=== PATIENT | female | born 1970 | race Hispanic/Latino ===

== ENCOUNTER → 2021-01-25 11:20 | Outpatient (CLI) | payer MEDICAID, SELFPAY ==
[2021-01-25 10:57] VITALS: BMI 28.3
[2021-01-25 15:18] LABS: Thyroid Stim Hormone (TSH) 0.55 uIU/mL (0.358-3.74)
[2021-01-27 09:01] LABS: Thyroid Peroxidase AB < 9 IU/mL (0-34)
== END ==
PROVIDERS: PCP Internal Medicine; Referring Provider Internal Medicine Endocrinology, Diabetes & Metabolism; Visit Provider Internal Medicine Endocrinology, Diabetes & Metabolism
DX: E04.9 Nontoxic goiter, unspecified (principal)
CPT/HCPCS: 36415; 84443; 86376

== ENCOUNTER → 2022-02-21 | Outpatient (CLI) | payer MEDICAID, SELFPAY ==
[2022-02-25 16:08] LABS: Endomysial Antibody IgA Negative (Negative)
[2022-02-25 17:15] LABS: Immunoglobulin A 432 mg/dL (87-352); t-Transglutaminase IgA <2 U/mL (0-3)
== END | disposition home or self-care (01) ==
LOC: LAB 14:12
PROVIDERS: PCP Internal Medicine; Referring Provider Nurse Practitioner Adult Health; Visit Provider Nurse Practitioner Adult Health
DX: R10.9 Unspecified abdominal pain (principal)
CPT/HCPCS: 36415; 82784; 83516; 86255

== ENCOUNTER → 2022-02-26 | Outpatient (CLI) | payer MEDICAID, SELFPAY ==
[2022-02-28 10:46] LABS: H. PYLORI STOOL AG Negative (Negative)
== END | disposition home or self-care (01) ==
LOC: LABSPEC 12:58
PROVIDERS: PCP Internal Medicine; Referring Provider Nurse Practitioner Adult Health; Visit Provider Nurse Practitioner Adult Health
DX: R10.9 Unspecified abdominal pain (principal)

== ENCOUNTER 2022-05-23 10:07 | Day surgery (SDC) | payer MEDICAID, SELFPAY ==
[2022-05-23] VITALS (7 sets, daily range): BP systolic 88–116; BP diastolic 53–81; PULSE 78–110; RESP 16–18; TEMP 36.6–36.7; O2SAT 98–100; BMI 25.1
--- NOTE | 2022-05-23 10:59 | PCM.HP.BLA ---
History and Physical Date of Admission: 05/23/22 WILBER LOVETT, is a 51 F who presents to the office today for 6 wk f/u IBS-C. Monik wasn't covered, so we need to try a different Rx. IBS-C -- She has tried and failed fiber, stool softener, dulcolax, fleets enema, suppository, miralax. Usually 1-2 BMs per day, but feels constipated and bloated. Sometimes has to strain. Never feels fully evacuated. No diarrhea. No melena or hematochezia. She had screening colonoscopy 04/2020, negative. GERD -- she started pantoprazole 40 mg daily in December 2021, helped heartburn but her epigastric pain persisted. Remote hx of EGD, told she has a hiatal hernia. Chokes if she doesn't drink enough when eating. No postprandial pain. Bad pain in stomach and diarrhea if she eats banana, less severe symptoms with avocado. Tries to be gluten free, that has helped her abdominal pain pain. Diverticulitis -- in 11/2021. LLQ pain when she had diverticulitis 11/2021, had CT, was treated at [facility], that pain resolved. HIDA scan in 04/2020 was abnormal w/ EF 28, no eval for cholecystectomy, pain resolved. PMH includes inflammatory arthritis, asthma, fibromyalgia, headache disorder, dyslipidemia, allergies PSH includes x 2, hysterectomy, oophorectomy, laparoscopy. ROS Const Constitutional: Positive for headache(s); No fatigue ENT ENT: Positive for headache(s) and difficulty swallowing Cardio Cardiology: Positive for leg pain with exertion Gastro GI: Positive for abdominal pain, bloating, change in bowel habits, constipation, difficulty swallowing and excessive flatus; No belching, change in stool character, coffee ground emesis, cramping, diarrhea, heartburn, feeling full early, incontinent of stools, Vomiting blood/hematemesis, Blood in stool, loose stools, Black,tarry stools, nausea/dyspepsia, pain with swallowing, vomiting or other Musc Musculoskeletal: Positive for joint pain, back pain, joint swelling, numbness, tingling, Arthritis, restless legs, leg pain at night and leg pain with exertion Skin Skin: No yellowing of the eye or itchy eyes Neuro Neurology: Positive for headache(s), numbness, tingling and restless legs Psych Psychiatric: Positive for anxiety and No depression Endo Endocrine: No fatigue Aller/Imm Allergy/Immunologic: No itchy eyes Bienvenido/Lymp Hematologic/Lymphatic: Positive for easy bruising; No easy bleeding Exam Const General: cooperative, healthy appearing, comfortable, well developed and well groomed Quality Reporting Tobacco Screening ([facility]) Smoking Status: Never smoker Assessment and Plan Assessment and Plan (1) Irritable bowel syndrome with constipation: ?Status:?Acute ?Plan: 1 box of samples and prescription for Trulance 3 mg daily.? She is to call or send me a portal message letting me know if this is effective. (2) GERD (gastroesophageal reflux disease): ?Status:?Acute ?Plan: Continue pantoprazole.? She is scheduled for EGD and colonoscopy with follow-up after those. ? ? ? Medications: New plecanatide (Trulance) 3 mg? PO DAILY 90 tabs 3RF ? ? Discontinued linaclotide ?? Discontinued Reason:? None 290 mcg? PO QAM 30 caps 2RF ? ? Plan One box of samples of Trulance and rx for Trulance 3 mg daily for IBS with constipation.? She is to let me know how this works for her I have re-examined the patient. There are no clinical changes since date of exam.
--- NOTE | 2022-05-23 11:00 | EGD_PTH ---
PATIENT: GONZALO MESA LOC: EN U#:[id number] AGE/SX: 51/F ROOM: RE05/23/[address]: Dr. Kolby Wilson DO : 1970 BED: DIS: 05/23/2022 SPEC #: [id number] RECD: 05/23/22 12:37 STATUS: STORM REQ #: [id number] ANDREA: 05/23/22 11:[address]: Kolby Wilson DEPT: SURGICAL PATHOLOGY RECD BY: Johnna Chamorro ENTERED: 05/23/22 13:41 SP TYPE: EGD BIOPSY OT DR: Dr. Latesha Coffey MD Tissues: A - Esophagus, NOS B - Ileum, NOS C - Sigmoid colon biopsy Procedures: Special Stain Group II Surgery Specimen Level IV Alcian Blue/PAS (control) HEADER OPERATION: Colonoscopy, EGD ([facility] [place]) with biopsies PRE-OP DIAGNOSIS: Irritable bowel syndrome, constipation, GERD TISSUE SUBMITTED: A ? Random esophagus biopsy, B ? Terminal ileum biopsy, C ? Sigmoid biopsy MICROSCOPIC DIAGNOSIS A. Esophagus, random biopsy: Fragments of gastroesophageal mucosa with chronic inflammation. Intestinal metaplasia (goblet cell metaplasia) not identified. See comment. B. Terminal ileum, biopsy: Fragments of small intestinal mucosa, no pathologic diagnosis. C. Sigmoid colon, biopsy: Fragments of colonic mucosa, no pathologic diagnosis. SJ:jolene 05/24/2022 COMMENT A. Alcian blue/PAS stain with matched control is used in the evaluation of the specimen. MICROSCOPIC DESCRIPTION Slides are reviewed. GROSS DESCRIPTION A - Received in fixative is one container labeled with the patient's name and designated random esophagus biopsy. The specimen consists of multiple irregular fragments of light randolph soft tissue that in aggregate measure 0.8 x 0.3 x 0.1 cm. The specimen is totally submitted in one cassette. B - Received in fixative is one container labeled with the patient's name and designated terminal ileum biopsy. The specimen consists of two irregular fragments of light randolph soft tissue that in aggregate measure 0.8 x 0.2 x 0.1 cm. The specimen is totally submitted in one cassette. C - Received in fixative is one container labeled with the patient's name and designated sigmoid biopsy. The specimen consists of two irregular fragments of light randolph soft tissue that in aggregate measure 0.6 x 0.2 x 0.1 cm. The specimen is totally submitted in one cassette. / SJ:rg 05/23/2022 TC:3 CPT: 47471 x3, 51040
--- NOTE | 2022-05-23 11:32 | OP.EGD_ITS ---
Patient Name: Eloisa Ham Procedure Date: 05/23/2022 10:57 AM Date of : 1970 Age: 51 Procedure: Upper GI endoscopy Indications: Dysphagia, Heartburn Providers: Kolby Wilson DO Medicines: Monitored Anesthesia Care Patient Profile: This is a 51 year old female. Refer to note in patient chart for documentation of history and physical. Patient has symptoms of acute epigastric abdominal pain and chronic dyspepsia. Complications: No immediate complications. Procedure: Pre-Anesthesia Assessment: - Prior to the procedure, a History and Physical was performed, and patient medications and allergies were reviewed. The risks and benefits of the procedure and the sedation options and risks were discussed with the patient. All questions were answered and informed consent was obtained. Patient identification and proposed procedure were verified by the physician in the pre-procedure area. Mental Status Examination: alert and oriented. Airway Examination: normal oropharyngeal airway and neck mobility. Respiratory Examination: clear to auscultation. CV Examination: normal. Prophylactic Antibiotics: The patient does not require prophylactic antibiotics. Prior Anticoagulants: The patient has taken no previous anticoagulant or antiplatelet agents. After reviewing the risks and benefits, the patient was deemed in satisfactory condition to undergo the procedure. The anesthesia plan was to use moderate sedation / analgesia (conscious sedation). Immediately prior to administration of medications, the patient was re-assessed for adequacy to receive sedatives. The heart rate, respiratory rate, oxygen saturations, blood pressure, adequacy of pulmonary ventilation, and response to care were monitored throughout the procedure. The physical status of the patient was re-assessed after the procedure. After obtaining informed consent, the endoscope was passed under direct vision. Throughout the procedure, the patient's blood pressure, pulse, and oxygen saturations were monitored continuously. The pediatric colonoscope was introduced through the mouth, and advanced to the second part of duodenum. The upper GI endoscopy was accomplished without difficulty. The patient tolerated the procedure well. Scope In: 11:06:42 AM Scope Out: 11:11:12 AM Total Procedure Duration Time 0 hours 4 minutes 30 seconds Findings: Mucosal changes including ringed esophagus were found in the middle third of the esophagus and in the lower third of the esophagus. Esophageal findings were graded using the Eosinophilic Esophagitis Endoscopic Reference Score (EoE-EREFS) as: Stricture present. Biopsies were obtained from the proximal and distal esophagus with cold forceps for histology of suspected eosinophilic esophagitis. Verification of patient identification for the specimen was done. Estimated blood loss was minimal. One benign-appearing, intrinsic stenosis was found 36 to 38 cm from the incisors. This stenosis was moderately severe and. The stenosis was traversed. A guidewire was placed and the scope was withdrawn. Dilation was performed with a Savary dilator with no resistance at 48 Fr. The dilation site was examined following endoscope reinsertion and showed moderate improvement in luminal narrowing. Estimated blood loss was minimal. The entire examined stomach was normal. A small hiatal hernia was present. The second portion of the duodenum was normal. Impression: - Esophageal mucosal changes consistent with eosinophilic esophagitis. Biopsied. - Benign-appearing esophageal stenosis. Dilated. - Normal stomach. - Small hiatal hernia. - Normal second portion of the duodenum. Recommendation: - Discharge patient to home. - Resume previous diet. - Continue present medications. - Await pathology results. - Repeat upper endoscopy in 1 year for surveillance. Procedure Code(s): --- Professional --- 97934, Esophagogastroduodenoscopy, flexible, transoral; with insertion of guide wire followed by passage of dilator(s) through esophagus over guide wire 31008, 59,51, Esophagogastroduodenoscopy, flexible, transoral; with biopsy, single or multiple CPT copyright 2017 [employer]. All rights reserved. The codes documented in this report are preliminary and upon professional fee coder review may be revised to meet current compliance requirements. Kolby Wilson DO 05/23/2022 11:32:10 AM This report has been signed electronically. Number of Addenda: 1 Note Initiated On: 05/23/2022 10:57 AM Addendum Number: 1 Addendum Date: 07/25/2022 6:27:30 AM MAC was used as sedation for this procedure. Kolby Wilson DO 07/25/2022 6:27:34 AM This report has been signed electronically.
--- NOTE | 2022-05-23 11:33 | OP.CCLET_ITS ---
07/25/2022 Latesha Coffey Re : Upper GI endoscopy procedure for Eloisa Ham Dear Alexx This procedure was performed on May. My impressions and recommendations are as follows: Impressions : - Esophageal mucosal changes consistent with eosinophilic esophagitis. Biopsied. - Benign-appearing esophageal stenosis. Dilated. - Normal stomach. - Small hiatal hernia. - Normal second portion of the duodenum. Recommendations : - Discharge patient to home. - Resume previous diet. - Continue present medications. - Await pathology results. - Repeat upper endoscopy in 1 year for surveillance. My findings are described in the full procedure note, which is enclosed. If I can be of further assistance, please feel free to contact me at . Sincerely, Kolby Friend, 05/23/2022 11:32:10 AM This report has been signed electronically.
--- NOTE | 2022-05-23 11:37 | OP.COLON_ITS ---
Patient Name: Eloisa Ham Procedure Date: 05/23/2022 11:11 AM Date of : 1970 Age: 51 Procedure: Colonoscopy Indications: Generalized abdominal pain Providers: Kolby Wilson DO Medicines: Monitored Anesthesia Care Patient Profile: This is a 51 year old female. Refer to note in patient chart for documentation of history and physical. Patient has symptoms of acute epigastric abdominal pain and chronic dyspepsia. Last Colonoscopy: 5 years ago. Complications: No immediate complications. Procedure: Pre-Anesthesia Assessment: - Prior to the procedure, a History and Physical was performed, and patient medications and allergies were reviewed. The risks and benefits of the procedure and the sedation options and risks were discussed with the patient. All questions were answered and informed consent was obtained. Patient identification and proposed procedure were verified by the physician in the pre-procedure area. Mental Status Examination: alert and oriented. Airway Examination: normal oropharyngeal airway and neck mobility. Respiratory Examination: clear to auscultation. CV Examination: normal. Prophylactic Antibiotics: The patient does not require prophylactic antibiotics. Prior Anticoagulants: The patient has taken no previous anticoagulant or antiplatelet agents. After reviewing the risks and benefits, the patient was deemed in satisfactory condition to undergo the procedure. The anesthesia plan was to use moderate sedation / analgesia (conscious sedation). Immediately prior to administration of medications, the patient was re-assessed for adequacy to receive sedatives. The heart rate, respiratory rate, oxygen saturations, blood pressure, adequacy of pulmonary ventilation, and response to care were monitored throughout the procedure. The physical status of the patient was re-assessed after the procedure. After I obtained informed consent, the scope was passed under direct vision. Throughout the procedure, the patient's blood pressure, pulse, and oxygen saturations were monitored continuously. The pediatric colonoscope was introduced through the anus and advanced to the terminal ileum. The colonoscopy was performed without difficulty. The patient tolerated the procedure well. The quality of the bowel preparation was good. Scope In: 11:13:09 AM Scope Withdrawal Time 0 hours 5 minutes 44 seconds Scope Out: 11:26:27 AM Total Procedure Duration Time 0 hours 13 minutes 18 seconds Findings: The perianal and digital rectal examinations were normal. Multiple small and large-mouthed diverticula were found in the recto-sigmoid colon, sigmoid colon and descending colon. There was no evidence of diverticular bleeding. An area of mildly congested mucosa was found in the sigmoid colon. Biopsies were taken with a cold forceps for histology. Verification of patient identification for the specimen was done. Estimated blood loss was minimal. A patchy area of the terminal ileum was congested. Biopsies were taken with a cold forceps for histology. Verification of patient identification for the specimen was done. Estimated blood loss was minimal. The sigmoid colon was grossly tortuous. There was moderate spasm in the recto-sigmoid colon. Impression: - Moderate diverticulosis in the recto-sigmoid colon, in the sigmoid colon and in the descending colon. There was no evidence of diverticular bleeding. - Congested mucosa in the sigmoid colon. Biopsied. - Congested mucosa in the terminal ileum. Biopsied. - Tortuous colon. - Moderate colonic spasm. Recommendation: - Written discharge instructions were provided to the patient. - The signs and symptoms of potential delayed complications were discussed with the patient. - Patient has a contact number available for emergencies. - Return to normal activities tomorrow. - Resume previous diet. - Continue present medications. - Await pathology results. - Repeat colonoscopy in 5 years for surveillance. Procedure Code(s): --- Professional --- 84556, Colonoscopy, flexible; with biopsy, single or multiple CPT copyright 2017 [employer]. All rights reserved. The codes documented in this report are preliminary and upon news production supervisor review may be revised to meet current compliance requirements. Kolby Wilson DO 05/23/2022 11:36:19 AM This report has been signed electronically. Number of Addenda: 1 Note Initiated On: 05/23/2022 11:11 AM Addendum Number: 1 Addendum Date: 07/25/2022 6:27:42 AM MAC was used as sedation for this procedure. Kolby Wilson DO 07/25/2022 6:27:46 AM This report has been signed electronically.
--- NOTE | 2022-05-23 11:37 | OP.CCLET_ITS ---
07/25/2022 Latesha Coffey Re : Colonoscopy procedure for Eloisa Ham Dear Alexx This procedure was performed on May. My impressions and recommendations are as follows: Impressions : - Moderate diverticulosis in the recto-sigmoid colon, in the sigmoid colon and in the descending colon. There was no evidence of diverticular bleeding. - Congested mucosa in the sigmoid colon. Biopsied. - Congested mucosa in the terminal ileum. Biopsied. - Tortuous colon. - Moderate colonic spasm. Recommendations : - Written discharge instructions were provided to the patient. - The signs and symptoms of potential delayed complications were discussed with the patient. - Patient has a contact number available for emergencies. - Return to normal activities tomorrow. - Resume previous diet. - Continue present medications. - Await pathology results. - Repeat colonoscopy in 5 years for surveillance. My findings are described in the full procedure note, which is enclosed. If I can be of further assistance, please feel free to contact me at . Sincerely, Kolby Wilson, 05/23/2022 11:36:19 AM This report has been signed electronically.
== END 2022-05-23 12:18 | disposition home or self-care (01) ==
LOC: EN 10:08 → AC 10:23
PROVIDERS: PCP Internal Medicine; Referring Provider Internal Medicine; Visit Provider Internal Medicine Gastroenterology
PROC: 0DJD8ZZ Inspection of Lower Intestinal Tract, Via Natural or Artificial Opening Endoscopic (ICD-10-PCS; CPT 45378; principal; 2022-05-23 10:55)
DX: K57.30 Diverticulosis of large intestine without perforation or abscess without bleeding (principal); R10.84 Generalized abdominal pain; K44.9 Diaphragmatic hernia without obstruction or gangrene; R13.10 Dysphagia, unspecified; K58.9 Irritable bowel syndrome, unspecified; R12 Heartburn; K63.89 Other specified diseases of intestine; K22.2 Esophageal obstruction
CPT/HCPCS: 43248; 45380; 43239; 88305; 88313; J7120; J2405

== ENCOUNTER → 2022-06-06 | Outpatient (CLI) | payer MEDICAID, SELFPAY ==
[2022-06-09 15:27] LABS: Immunoglobulin A 414 mg/dL (87-352)
== END | disposition home or self-care (01) ==
LOC: LAB 15:14
PROVIDERS: PCP Internal Medicine; Visit Provider Internal Medicine Gastroenterology
DX: K21.9 Gastro-esophageal reflux disease without esophagitis (principal)
CPT/HCPCS: 36415; 82784

== ENCOUNTER → 2022-09-02 | Outpatient (CLI) | payer MEDICAID, SELFPAY ==
--- NOTE | 2022-09-02 10:25 | RAD_ITS ---
EXAM: XR ABDOMEN, 1 VIEW CLINICAL INDICATION: sitz marker day 3 TECHNIQUE: Frontal supine view of the abdomen/pelvis. This report was created using [employer] report generation technology. COMPARISON: None. FINDINGS: LOWER THORAX: No acute pathology. GASTROINTESTINAL TRACT: 5 sitz markers are noted within the ascending colon, and 2 sitz markers are noted in the descending colon. Moderate amount of stool in the colon. Non-obstructive. No bowel or stomach distention. ORGANS: Unremarkable as visualized. No organomegaly. No abnormal calcifications. BONES/JOINTS: No acute pathology. SOFT TISSUES: No acute pathology. RAD/Abdomen Single View IMPRESSION: 5 sitz markers are noted within the ascending colon, and 2 sitz markers are noted in the descending colon. Electronically Signed: Arvind De La Paz MD at 2:36 EST ,
== END | disposition home or self-care (01) ==
LOC: RAD 10:23
PROVIDERS: PCP Internal Medicine; Referring Provider Nurse Practitioner Adult Health; Visit Provider Nurse Practitioner Adult Health
DX: K58.1 Irritable bowel syndrome with constipation (principal)
CPT/HCPCS: 74018

== ENCOUNTER → 2022-09-04 | Outpatient (CLI) | payer MEDICAID, SELFPAY ==
--- NOTE | 2022-09-04 10:13 | RAD_ITS ---
STUDY: X-RAY - ABDOMEN/PELVIS REASON FOR EXAM: Female, 51 years old. Sitz marker day 5. TECHNIQUE: Single AP view of the abdomen / pelvis on 2 images. COMPARISON: September 02, 2022. FINDINGS: Normal visualized lung bases. 2 Sitzmarks markers in the descending colon are no longer present. 4 Sitz markers projected between the cecum and the hepatic flexure. One sitz marker projected over the proximal transverse colon. All of these are unchanged from the comparison study. The visualized liver, spleen and kidneys are grossly normal in size and morphology. Normal soft tissue structures. Normal visualized osseous structures. RAD/Abdomen Single View IMPRESSION: Position of Sitz markers as described. Electronically Signed: John Edward, at 12:22 [facility] ,
== END | disposition home or self-care (01) ==
LOC: RAD 10:12
PROVIDERS: PCP Internal Medicine; Referring Provider Nurse Practitioner Adult Health; Visit Provider Nurse Practitioner Adult Health
DX: K58.1 Irritable bowel syndrome with constipation (principal)
CPT/HCPCS: 74018

== ENCOUNTER → 2024-02-11 | Outpatient (CLI) | payer MEDICAID, SELFPAY ==
--- NOTE | 2024-02-11 | CYSPIN_PTH ---
PATIENT: GONZALO MESA LOC: DE U#:[id number] AGE/SX: 53/F ROOM: RE02/11/[address]: Dr. Dasha Oliver MD : 1970 BED: DIS: 02/11/2024 SPEC #: [id number] RECD: 02/12/24 11:30 STATUS: STORM RESincere #: [id number] ANDREA: 02/11/24 00:[address]: Dasha Oliver DEPT: CYTOLOGY RECD BY: Johnna Chamorro ENTERED: 02/12/24 11:30 SP TYPE: CYSPIN FL OTHR DR: Dr. Latesha Coffey MD Tissues: Urine Procedures: Pap Stain (control) Special Stain Group II Cytospin Fluid HEADER OPERATION: Not noted PRE-OP DIAGNOSIS: Gross hematuria TISSUE SUBMITTED: Urine for cytology DIAGNOSIS CYTOLOGY Urine for cytology (cytospin): Negative for high grade urothelial carcinoma (NHGUC). Arelis System Category II. See comment. SJ/ 02/12/2024 COMMENT Numerous crystals are also noted. Red blood cells are also present in this specimen. The Arelis System for urine cytology diagnostic categorization was used in the evaluation of this case. CYTOLOGY STUDY Slides are reviewed. CYTOLOGY GROSS Received is 40 ml of dark gold fluid labeled with the patient's name and and designated per the requisition as urine. Submitted for cytology preparation. mr 02/12/24 TC:5 CPT: 62794
[2024-02-11 17:42] LABS: Cytology, Body Fluid / CSF SEE PATHOLOGY REPORT
== END | disposition home or self-care (01) ==
LOC: CT 17:41
PROVIDERS: PCP Internal Medicine; Referring Provider Urology; Visit Provider Urology
DX: R31.0 Gross hematuria (principal); R10.9 Unspecified abdominal pain
CPT/HCPCS: 88108; 88313

== ENCOUNTER → 2024-02-26 | Outpatient (CLI) | payer MEDICAID, SELFPAY ==
--- NOTE | 2024-02-26 07:53 | CT_ITS ---
STUDY: CT ABDOMEN AND PELVIS WITH AND WITHOUT CONTRAST REASON FOR EXAM: Female, 53 years old. Gross hematuria. Intermittent flank pain. RADIATION DOSAGE (If Supplied By Facility): CTDIvol = ( 7.05 ) mGy, DLP = ( 1015.43 ) mGycm TECHNIQUE: Transaxial images were obtained from the dome of the diaphragm to the symphysis pubis without oral contrast. IV 100mL Isovue-370 was administered. Sagittal and coronal images were reconstructed. Individualized dose optimization techniques were used for this CT. COMPARISON: None. FINDINGS: The visualized lung bases are unremarkable. The visualized portions of the heart are within normal limits. Normal liver. Normal gallbladder and extrahepatic biliary system. Normal spleen. Normal pancreas. Normal bilateral adrenal glands. Normal right kidney. Normal left kidney. Normal visualized stomach. Normal small intestine. There are multiple colonic diverticula consistent with diverticulosis. The appendix is visualized and appears normal. Normal abdominal aorta. Normal inferior vena cava. Normal retroperitoneum. Normal urinary bladder. There is absence of the uterus consistent with a prior hysterectomy. Normal abdominal wall. Normal osseous structures. CT/CT Abd/Pelvis W/WO Contrast IMPRESSION: Sigmoid diverticulosis. No acute abnormality is seen. Electronically Signed: Shaq Bynum MD at 14:48 EDT ,
== END | disposition home or self-care (01) ==
LOC: CT 07:50
PROVIDERS: PCP Internal Medicine; Referring Provider Urology; Visit Provider Urology
DX: R10.9 Unspecified abdominal pain (principal); R31.0 Gross hematuria
CPT/HCPCS: 74178; Q9967

== ENCOUNTER 2024-03-09 13:04 | Day surgery (SDC) | payer MEDICAID, SELFPAY ==
[2024-03-09 13:24] VITALS: BP 132/76; PULSE 94; RESP 18; TEMP 37.1; O2SAT 99; BMI 26.2
[2024-03-09] MEDS: Lactated Ringers 1,000 ML 15 ML IV (13:33)
--- NOTE | 2024-03-09 14:04 | PCM.HP.BLA ---
History and Physical Date of Admission: 03/09/24 GONZALO LOVETT, is a 53 F who presents to the office today for PMH rheumatoid arthritis (Humira); diverticulitis at [facility] Prior workup OSH: ? HIDA 05.10.20 EF 28% ? Colonoscopy 05.12.20 advanced to IC junction. *BGI established 02.21.22 with generalized abdominal pain. Epigastric pain is improved with use of protonix 40mg started in . BM trend toward constipation of 1-2/day with straining and incomplete evacuation; stool softener/fiber gummy ineffective. Start Linzess (denied by insurance) ? Biochemical 02.21.22 celiac (IgA H432) WNL ? Stool 02.26.22 H.Pylori WNL OV 04.05.22 start trulance ? EGD and colonoscopy 05.23.22 EGD mucosal changes of EOE; esophageal stenosis, Savary 48F; small hiatal hernia. No metaplasia. ? Colonoscopy diverticulosis; congested mucosa; RS colonic spasm; sigmoid grossly tortuous. No path changes OV 06.06.22 She has been out of PPI for three days with return of heartburn. BM each day without straining and complete evacuation with Trulance. ? Biochemical 06.06.22 IgA H 414 OV 08.29.22 Repeat episode of diverticulitis. Stop trulance, start IBSrela. ? SITZ Xray day 3: 5 rings R colon, 3 rings L colon, 1 ring RS colon. Day 5: 6 rings R colon; No rings L or RS colon. OV 11.18.22 Stop IBSrela, Start lactulose 11.18.22 OV 12 Reports several episodes of diverticulitis treated at [facility] with antibiotics. Taking lactulose daily and is having ongoing constipation with hard smaller BM or normal movements of smaller quantity. ROS Const Constitutional: Positive for headache(s) and weight change; No fatigue ENT ENT: Positive for headache(s); No difficulty swallowing Cardio Cardiology: Positive for leg pain with exertion Gastro GI: Positive for abdominal pain, bloating, constipation and excessive flatus; No belching, change in bowel habits, change in stool character, coffee ground emesis, cramping, diarrhea, heartburn, difficulty swallowing, feeling full early, incontinent of stools, Vomiting blood/hematemesis, Blood in stool, loose stools, Black,tarry stools, nausea/dyspepsia, pain with swallowing, vomiting or other Musc Musculoskeletal: Positive for joint pain, back pain, joint swelling, Arthritis, restless legs and leg pain with exertion Skin Skin: No yellowing of the eye or itchy eyes Neuro Neurology: Positive for headache(s) and restless legs Psych Psychiatric: No anxiety and No depression Endo Endocrine: Positive for weight change; No fatigue Aller/Imm Allergy/Immunologic: No itchy eyes Bienvenido/Lymp Hematologic/Lymphatic: No easy bleeding or easy bruising Exam Const General: cooperative, healthy appearing and comfortable Orientation: alert, awake and oriented x3 Quality Reporting Tobacco Screening ([facility] 138) Smoking Status: Never smoker Assessment and Plan Assessment and Plan (1) Irritable bowel syndrome with constipation: Status: Chronic Plan: She was tried on Linzess but her insurance did not allow her to continue that medicine although she did have some success at the 290 mcg dose. She was then put on Trulance therapy would actually work pretty well with at the 3 mg dose once a day. She developed acute diverticulitis while on the medicine and after that she was switched to lactulose 15 mg p.o. twice daily. That became a little bit less effective as she has been getting some intermittent crampy left lower quadrant pain. She called in and she was given permission to increase it up to 30 mg twice a day and it works on occasion but not every occasion. She is on some medicines that slow her GI tract down due to her history of migraines and fibromyalgia. Therefore I will put her back on the Trulance and we will introduce [facility]. Also since she has been having some intermittent left lower quadrant pain associate with fever, incomplete evacuation and tenesmus we may need to treat her for recurrent diverticulitis. (2) GERD (gastroesophageal reflux disease): Status: Chronic Qualifiers: Esophagitis presence: without esophagitis Qualified Code(s): K21.9 - Gastro-esophageal reflux disease without esophagitis Plan: Continue PPI as needed. (3) Hx of diverticulitis of colon: Status: Chronic I have examined the patient and the H&P has been reviewed. There are no clinical changes since date of exam.
[2024-03-09 14:36] VITALS: BP 132/76; BP 83/50; PULSE 87; RESP 16; TEMP 36.3; O2SAT 100
[2024-03-09 14:40] VITALS: BP 132/76; BP 94/69; PULSE 91; RESP 16; O2SAT 100
--- NOTE | 2024-03-09 14:41 | OP.COLON_ITS ---
Patient Name: Eloisa Ham Procedure Date: 03/09/2024 2:02 PM Date of : 1970 Age: 53 Procedure: Colonoscopy Indications: Screening for colorectal malignant neoplasm Providers: Kolby Wilson DO Referring MD: Latesha Coffey Medicines: Monitored Anesthesia Care Patient Profile: This is a 53 year old female. Refer to note in patient chart for documentation of history and physical. Last Colonoscopy: date unknown. Unable to locate last colonoscopy report. Complications: No immediate complications. Procedure: Pre-Anesthesia Assessment: - Prior to the procedure, a History and Physical was performed, and patient medications and allergies were reviewed. The patient is competent. The risks and benefits of the procedure and the sedation options and risks were discussed with the patient. All questions were answered and informed consent was obtained. Patient identification and proposed procedure were verified by the physician in the pre-procedure area. Mental Status Examination: alert and oriented. Airway Examination: normal oropharyngeal airway and neck mobility. Respiratory Examination: clear to auscultation. CV Examination: normal. Prophylactic Antibiotics: The patient does not require prophylactic antibiotics. Prior Anticoagulants: The patient has taken no anticoagulant or antiplatelet agents. ASA Grade Assessment: II - A patient with mild systemic disease. After reviewing the risks and benefits, the patient was deemed in satisfactory condition to undergo the procedure. The anesthesia plan was to use monitored anesthesia care (MAC). Immediately prior to administration of medications, the patient was re-assessed for adequacy to receive sedatives. The heart rate, respiratory rate, oxygen saturations, blood pressure, adequacy of pulmonary ventilation, and response to care were monitored throughout the procedure. The physical status of the patient was re-assessed after the procedure. After I obtained informed consent, the scope was passed under direct vision. Throughout the procedure, the patient's blood pressure, pulse, and oxygen saturations were monitored continuously. The Colonoscope was introduced through the anus and advanced to the cecum, identified by appendiceal orifice and ileocecal valve. The colonoscopy was performed without difficulty. The patient tolerated the procedure well. The quality of the bowel preparation was adequate. The terminal ileum, ileocecal valve, appendiceal orifice, and rectum were photographed. Scope In: 2:20:30 PM Scope Withdrawal Time 0 hours 7 minutes 36 seconds Scope Out: 2:31:48 PM Total Procedure Duration Time 0 hours 11 minutes 18 seconds Findings: The perianal and digital rectal examinations were normal. Multiple small and large-mouthed diverticula were found in the recto-sigmoid colon, sigmoid colon and descending colon. There was significant spasm in the sigmoid colon. The terminal ileum appeared normal. Impression: - Diverticulosis in the recto-sigmoid colon, in the sigmoid colon and in the descending colon. - Significant colonic spasm consistent with irritable bowel syndrome. - The examined portion of the ileum was normal. - No specimens collected. Recommendation: - Discharge patient to home. - Resume previous diet. - Continue present medications. - Repeat colonoscopy in 10 years for surveillance. Procedure Code(s): --- Professional --- G0121, Colorectal cancer screening; colonoscopy on individual not meeting criteria for high risk CPT copyright 2021 [employer]. All rights reserved. The codes documented in this report are preliminary and upon refueling ramp supervisor review may be revised to meet current compliance requirements. Kolby Wilson DO 03/09/2024 2:41:23 PM This report has been signed electronically. Number of Addenda: 0 Note Initiated On: 03/09/2024 2:02 PM
--- NOTE | 2024-03-09 14:42 | OP.CCLET_ITS ---
03/09/2024 Latesha Coffey Re : Colonoscopy procedure for Eloisa Ham Dear Alexx This procedure was performed on Saturday, March 09, 2024. My impressions and recommendations are as follows: Impressions : - Diverticulosis in the recto-sigmoid colon, in the sigmoid colon and in the descending colon. - Significant colonic spasm consistent with irritable bowel syndrome. - The examined portion of the ileum was normal. - No specimens collected. Recommendations : - Discharge patient to home. - Resume previous diet. - Continue present medications. - Repeat colonoscopy in 10 years for surveillance. My findings are described in the full procedure note, which is enclosed. If I can be of further assistance, please feel free to contact me at . Sincerely, Kolby Wilson, 03/09/2024 2:41:23 PM This report has been signed electronically.
[2024-03-09 14:45] VITALS: BP 118/80; BP 132/76; PULSE 72; RESP 16; O2SAT 100
[2024-03-09 14:50] VITALS: BP 120/86; BP 132/76; PULSE 85; RESP 16; TEMP 36.1; O2SAT 100
[2024-03-09 15:10] VITALS: BP 132/76
== END 2024-03-09 15:31 | disposition home or self-care (01) ==
LOC: EN 13:06 → AC 13:07
PROVIDERS: PCP Internal Medicine; Referring Provider Internal Medicine; Visit Provider Internal Medicine Gastroenterology
PROC: 0DJD8ZZ Inspection of Lower Intestinal Tract, Via Natural or Artificial Opening Endoscopic (ICD-10-PCS; CPT 45378; principal; 2024-03-09 13:55)
DX: Z12.11 Encounter for screening for malignant neoplasm of colon (principal); K58.1 Irritable bowel syndrome with constipation; K57.30 Diverticulosis of large intestine without perforation or abscess without bleeding; K21.9 Gastro-esophageal reflux disease without esophagitis; Z87.19 Personal history of other diseases of the digestive system; J45.909 Unspecified asthma, uncomplicated; Z79.899 Other long term (current) drug therapy; E78.00 Pure hypercholesterolemia, unspecified
CPT/HCPCS: G0121; J7120; J2405

== ENCOUNTER 2024-03-25 10:21 | Day surgery (SDC) | payer MEDICAID, SELFPAY ==
[2024-03-25] VITALS (9 sets, daily range): BP systolic 123–143; BP diastolic 85–99; PULSE 67–89; RESP 14–16; TEMP 36.3–36.6; O2SAT 97–100; BMI 26.4
[2024-03-25] MEDS: Lactated Ringers 1,000 ML 15 ML IV (10:42)
[2024-03-25] MEDS: Cefazolin 2 GM in 0.9% Normal Saline (100mL Bag) 100 ML IV (11:00)
--- NOTE | 2024-03-25 11:35 | FLU_PTH ---
PATIENT: GONZALO MESA LOC: [facility] [place] U#:[id number] AGE/SX: 53/F ROOM: RE03/25/[address]: Dr. Dasha Oliver MD : 1970 BED: DIS: 03/25/2024 SPEC #: [id number] RECD: 03/25/24 12:09 STATUS: STORM MCKEON #: [id number] ANDREA: 03/25/24 11:[address]: Dasha Oliver DEPT: CYTOLOGY RECD BY: Nicole Weir ENTERED: 03/25/24 13:18 SP TYPE: Fluid OTHR DR: Dr. Latesha Coffey MD Tissues: A - Pelvis, NOS B - Pelvis, NOS Procedures: Special Stain Group II Surgery Specimen Level IV Cytospin Fluid HEADER OPERATION: Cysto, bilateral selective cytology, bilateral utereroscopy PRE-OP DIAGNOSIS: Gross hematuria, incontinence, flank pain TISSUE SUBMITTED: A- Left renal pelvic washings, B- Right renal pelvic washings DIAGNOSIS CYTOLOGY A. Left renal pelvic washings (cytospin and cellblock): Negative for high-grade urothelial carcinoma ([place] Category II). See comment. B. Right renal pelvic washings (cytospin and cellblock): Negative for high-grade urothelial carcinoma ([place] Category II). See comment. AM/ 03/26/2024 COMMENT A. The [place] System for thyroid diagnostic categorization was used in the evaluation of this case. B. The [place] System for thyroid diagnostic categorization was used in the evaluation of this case. Case has been reviewed in consultation with Dr. Mao who concurs with the above diagnosis. IDC:SJ CYTOLOGY STUDY Slides are reviewed. CYTOLOGY GROSS A. Received is 0.5 ml of hazy colorless fluid labeled with the patient's name and and designated per the requisition as Left renal pelvic washing. Submitted for cytology preparation including cell block. B. Received is <0.5 ml of hazy colorless fluid labeled with the patient's name and and designated per the requisition as Right renal pelvic washing. Submitted for cytology preparation including cell block. Mr 03/25/2024 TC:5 CPT:38953 x2
--- NOTE | 2024-03-25 11:51 | DCINST_ITS ---
Discharge Instructions Diet Discharge Diet: No restrictions Activity Discharge Activity: Return to Normal Activity Dressing / Incision Call your doctor if you observe: Fever of 101 or Higher, Inability to urinate and Inability to have a bowel movement Follow Up Care Please Follow Up With: Dasha Oliver MD When: The office will call her to make follow-up arrangements Test Results: Test results from this visit will be discussed in further detail at your follow- up appointment, if applicable. Discharge Plan Admission Attending Provider: Dasha Oliver Primary Care Provider: Latesha Coffey Instructions Print Language: Azeri Discharge Orders/Prescriptions Prescriptions: New phenazopyridine [Pyridium] 200 mg tablet 200 mg PO TID PRN PRN (Reason: Bladder Spasms) 7 Days Qty: 30 1RF cephalexin 500 mg capsule 500 mg PO Q12 3 Days Qty: 6 0RF Continued cyclobenzaprine 10 mg tablet 10 mg PO PRN PRN (Reason: Muscle Pain) loratadine 10 mg tablet 10 mg PO DAILY Patient Comments: TAKE 1 TABLET BY MOUTH ONCE DAILY sumatriptan succinate 50 mg tablet 1 tablet PO PRN PRN (Reason: MIGRAINES) Humira(CF) Pen 40 mg/0.4 mL pen injector kit See Rx Instructions subcut .COMPLEX Rx Instructions: inject one - 40 mg/0.4 mL pen every 2 weeks subcut pantoprazole 40 mg tablet,delayed release (DR/EC) 40 mg PO DAILY Qty: 30 5RF tramadol 50 MG tablet 50 mg PO Q6H PRN PRN (Reason: Pain) [id number] 1 TABLET tablet 1 tab PO Q4H PRN PRN (Reason: Headache) albuterol sulfate 90 mcg/actuation HFA aerosol inhaler 1 inh INHALATION PRN PRN (Reason: ASTHMA) Patient Comments: INHALE 2 PUFFS BY MOUTH EVERY 6 HOURS NEEDED FOR SHORTNESS OF BREATH Ubrelvy 100 mg tablet 100 mg PO PRN Qulipta 60 mg tablet 60 mg PO DAILY Hemorrhoidal H Suppository 1 supp HI DAILY PRN (Reason: hemorrhoids) Trulance 3 mg tablet 3 mg PO DAILY Qty: 30 2RF budesonide 3 mg capsule,delayed,extend.release 6 mg PO DAILY Qty: 60 2RF Referrals / Follow Up: Latesha Coffey MD [Primary Care Provider] - Disposition Disposition (needs filled in before D/C Order can be placed): Home, Self Care
--- NOTE | 2024-03-25 11:54 | PCM.OPRPT ---
Report of Operation Date of Procedure: 03/25/24 Pre-Operative Diagnosis: Gross hematuria Post-Operative Diagnosis: Same Surgery/Procedure Performed:: Cystoscopy, bilateral selective cytologies, bilateral retrograde pyelogram, bilateral attempted ureteroscopy, bilateral ureteral stent insertion Surgeon: Dasha Oliver Type of Anesthesia: General Description of Procedure: The patient is a 53-year-old female with gross hematuria who presents for further evaluation under anesthesia. Informed consent was obtained. The patient was taken to the operating room and placed on the operating room table. Anesthesia monitored the head, neck, airway, IV access and vital signs throughout the case. Once anesthesia was appropriately administered, she was placed into dorsolithotomy position was prepped and draped in usual sterile fashion. The cystoscope was inserted through the urethra under direct visualization into the urinary bladder. There was no evidence of mass, erythema, ulceration or foreign body. The ureteral orifices were located in the correct anatomic position. A Pollick catheter was then used to gently cannulate the left ureteral orifice and it was advanced to 20 cm without difficulty. The catheter was then used to flush sterile saline into the renal pelvis and was then collected and sent for cytologic evaluation. Contrast was injected in retrograde fashion under fluoroscopic visualization revealing no evidence of hydroureteronephrosis, but was not quite normal proximally. At this time the process was repeated on the patient's right side with the same findings. Using a 0.035 Glidewire the left ureteral orifice was cannulated and the wire extended easily without difficulty into the renal pelvis is seen on fluoroscopy. An attempt was made at both flexible and semirigid ureteroscopy and the distal ureter was too narrow to allow advancement of the ureteroscope into the ureter. This finding was the same on her right side as well. The 0.035 Glidewire was then used to place 6 [place] 22 cm JJ stents into the renal pelvis with good positioning as well as in the urinary bladder. When both stents were in good position, the bladder was emptied and the cystoscope was removed. She was awakened and taken to the recovery room in good condition. There were no complications during this procedure. Grafts/Implants Used: 6 x 22 JJ stent Complications None Admit VTE Documentation VTE Present on Admission: Yes VTE Mechan Device Prophylaxis: SCD's VTE Pharm Prophylaxis ordered?: No
--- NOTE | 2024-03-25 12:07 | DCINST_ITS ---
Discharge Instructions Diet Discharge Diet: No restrictions Dressing / Incision Call your doctor if you observe: Fever of 101 or Higher, Inability to urinate and Inability to have a bowel movement Follow Up Care Please Follow Up With: Dasha Oliver MD Test Results: Test results from this visit will be discussed in further detail at your follow- up appointment, if applicable. Discharge Plan Admission Attending Provider: Dasha Oliver Primary Care Provider: Latesha Coffey Instructions Print Language: Serbian Discharge Orders/Prescriptions Prescriptions: New phenazopyridine [Pyridium] 200 mg tablet 200 mg PO TID PRN PRN (Reason: Bladder Spasms) 7 Days Qty: 30 1RF cephalexin 500 mg capsule 500 mg PO Q12 3 Days Qty: 6 0RF tramadol 50 mg tablet 50 mg PO Q8H PRN (Reason: pain) 3 Days Qty: 10 0RF Continued cyclobenzaprine 10 mg tablet 10 mg PO PRN PRN (Reason: Muscle Pain) loratadine 10 mg tablet 10 mg PO DAILY Patient Comments: TAKE 1 TABLET BY MOUTH ONCE DAILY sumatriptan succinate 50 mg tablet 1 tablet PO PRN PRN (Reason: MIGRAINES) Humira(CF) Pen 40 mg/0.4 mL pen injector kit See Rx Instructions subcut .COMPLEX Rx Instructions: inject one - 40 mg/0.4 mL pen every 2 weeks subcut pantoprazole 40 mg tablet,delayed release (DR/EC) 40 mg PO DAILY Qty: 30 5RF tramadol 50 MG tablet 50 mg PO Q6H PRN PRN (Reason: Pain) [id number] 1 TABLET tablet 1 tab PO Q4H PRN PRN (Reason: Headache) albuterol sulfate 90 mcg/actuation HFA aerosol inhaler 1 inh INHALATION PRN PRN (Reason: ASTHMA) Patient Comments: INHALE 2 PUFFS BY MOUTH EVERY 6 HOURS NEEDED FOR SHORTNESS OF BREATH Ubrelvy 100 mg tablet 100 mg PO PRN Qulipta 60 mg tablet 60 mg PO DAILY Hemorrhoidal H Suppository 1 supp SD DAILY PRN (Reason: hemorrhoids) Trulance 3 mg tablet 3 mg PO DAILY Qty: 30 2RF budesonide 3 mg capsule,delayed,extend.release 6 mg PO DAILY Qty: 60 2RF Referrals / Follow Up: Latesha Coffey MD [Primary Care Provider] - Disposition Disposition (needs filled in before D/C Order can be placed): Home, Self Care
[2024-03-25] MEDS: traMADol 50 MG Tablet PO (13:25)
[2024-03-25] MEDS: Phenazopyridine 95 MG Tablet 190 MG PO (13:25)
--- NOTE | 2024-03-25 14:04 | SUR.PHASEII ---
At 1325, the med orders were not transmitting to [facility] due to system malfunction. Orders were viewable. Pyridium 190mg po and Ultram 50mg po verified by Kelli SUAREZ and Kriss SUAREZ and given per orders.
[2024-03-29 11:27] LABS: Cytology, Body Fluid / CSF SEE PATHOLOGY REPORT
[2024-03-29 11:28] LABS: Cytology, Body Fluid / CSF SEE PATHOLOGY REPORT
== END 2024-03-25 15:17 | disposition home or self-care (01) ==
LOC: SDC 10:21 → AC 10:23
PROVIDERS: PCP Internal Medicine; Referring Provider Urology; Visit Provider Urology
PROC: 0TJ98ZZ Inspection of Ureter, Via Natural or Artificial Opening Endoscopic (ICD-10-PCS; CPT 52352; principal; 2024-03-25 11:25)
DX: R31.0 Gross hematuria (principal); M06.9 Rheumatoid arthritis, unspecified; N39.3 Stress incontinence (female) (male); R10.2 Pelvic and perineal pain; G89.29 Other chronic pain; E78.00 Pure hypercholesterolemia, unspecified
CPT/HCPCS: 52332; 76000; 88108; 88305; 88313; J7120; C2625; J2405

== ENCOUNTER 2024-04-08 11:12 | Day surgery (SDC) | payer MEDICAID, SELFPAY ==
[2024-04-08] VITALS (10 sets, daily range): BP systolic 111–135; BP diastolic 61–86; PULSE 72–88; RESP 16; TEMP 36.5–37; O2SAT 95–99; BMI 25.6
[2024-04-08] MEDS: Lactated Ringers 1,000 ML 15 ML IV (12:02)
--- NOTE | 2024-04-08 12:18 | PCM.PRE.AN2 ---
ASA Classification* ASA Classification ASA Classification: 2 Assessment & Plan Anesthesia* Anesthesia Assessment Anesthesia Assessment: Discussed sedation and/or anesthesia options, risks, benefits, and alternatives with patient/parents/legal guardian/POA. Questions invited. The patient/parents/legal guardian/POA seems to understand and agrees to proceed with anesthesia plan. Reviewed the physical assessment, medical history, allergy history and patient home medications list prior to surgery/procedure/anesthetic and documented any changes. Performed airway and anesthesia risk assessments. 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 When Was Last Pacemaker Check QUESTION #4 FULL TEXT: You/Your Family Experience fever (hyperthermia) with Anesthesia Last Oral Intake Last Oral intake: Last Oral Intake NPO since 23:45 04/08/24 11:44 Meds taken in AM with sips of Yes 04/08/24 11:44 water? Meds patient instructed to PROTONIX 04/08/24 11:44 take am of surgery PONV PONV - data management engineer: PONV - data management engineer Female Yes 04/02/24 11:15 HX of Motion Sickness No 04/02/24 11:15 HX of N/V After Surgery No 04/02/24 11:15 Non-Smoker Yes 04/02/24 11:15 Duration of Surgery greater Yes 04/02/24 11:15 than 60 minutes Number of Risk Factors 3 04/02/24 11:15 PONV Score Moderate Risk 04/02/24 11:15 Height & Weight Height & Weight: Anesthesia: Height & Weight Height 5 ft 2 in 04/08/24 11:44 Weight: 63.5 kg 04/08/24 11:44 Body Mass Index (BMI) 25.6 04/08/24 11:44 Respiratory Assessment Respiratory Assessment - data management engineer: Respiratory Tract Infection Hx - data management engineer Hx Respiratory Tract Infection No 04/02/24 11:15 STOP Sleep Apnea STOP Sleep Apnea - data management engineer: STOP Sleep Apnea - data management engineer Hx Hypertension No 04/02/24 11:15 Hx Sleep Apnea Yes 04/02/24 11:15 CPAP Yes 04/02/24 11:15 BIPAP No 04/02/24 11:15 Do you snore loudly (louder than talking or can be heard Do you often feel tired/ fatigued/ sleepy during daytime? Has anyone observed you stop breathing during sleep? STOP Results Positive 04/02/24 11:15 QUESTION #5 FULL TEXT : Do you snore loudly (louder than talking or can be heard through closed doors)? 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 Specify any problems Hx of Preganancy in last 3 No 04/02/24 11:15 Months Nurse Filling Out Transfusion DSCHRIBER 04/02/24 11:15 & Questions: Date: 04/02/24 04/02/24 11:15 Time: 11:17 04/02/24 11:15 Patient unable to answer at this time (ie. confused, unrespo /Reproduction History /Reproductive History - data management engineer: /Reproductive Hx- data management engineer Hx Now Gestational Age (in weeks): EDC: Hx Hx Para Hx Section SAB No 04/02/24 11:15 Active Medications Active Medications: Current Medications Generic Name Dose Route Start Last Admin Trade Name Freq PRN Reason Stop Dose Admin Cefazolin Sodium 2 gm/ Sodium 110 mls @ 150 mls/hr 04/08/24 12:45 Chloride IV 04/08/24 13:28 PREOP ONE Lactated Ringer's 1,000 mls @ 15 mls/hr 04/08/24 11:30 04/08/24 12:02 IV 15 mls/hr .Q48H NATALY Administration Anesthesia Focused Assessment* Temperature: 98.6 F Pulse Rate: 72 Blood Pressure: 126/61 Respiratory Rate: 16 Pulse Ox: 98 Airway Assessment Mouth opens: >3 cm Mallampati Score: II Focused Labs Anesthesia Preop lab: CBC WBC 6.0 K/mm3 (4.4-11.0) 11/15/14 08:26 RBC 4.11 M/mm3 (4.2-5.4) L 11/15/14 08:26 Hgb 12.6 g/dl (12.0-15.0) 11/15/14 08:26 Hct 36.5 % (37-47) L 11/15/14 08:26 Plt Count 252 K/mm3 (150-450) 11/15/14 08:26 CHEMISTRY TSH 0.55 uIU/mL (0.358-3.74) 01/25/21 11:21 COAG Review of Systems (Anesthesia) ROS Narrative System reviewed and no additional complaints, except as documented. [facility] Medical History Wears glasses Rheumatoid arthritis Anemia Back pain Migraine headache Syncope Gastric reflux Non-smoker CPAP (continuous positive airway pressure) dependence Shortness of breath on exertion History of edema GERD (gastroesophageal reflux disease) Irritable bowel syndrome with constipation Abdominal pain Nodular goiter MIDDLE FINGER MULTIPLE D&C cyst of wrist hystorectomy ovaries sinus glands Nose obstruction Breast cyst Cyst of ovary laposcopy Multiple Csection Fibromyalgia High triglycerides High cholesterol Asthma Arthritis Seasonal allergies Home Medications ?Medication ?Instructions ?Recorded ?Last Taken ?Type eixugmqewm-nwjobwykjgzbu-vwgijqwj 1 tab PO Q4H PRN PRN Headache 11/15/14 Unknown History 50 mg-325 mg-40 mg tablet cyclobenzaprine 10 mg tablet 10 mg PO PRN PRN Muscle Pain 01/25/21 Unknown History loratadine 10 mg tablet 10 mg PO DAILY 01/25/21 Unknown History sumatriptan succinate 50 mg tablet 1 tablet PO PRN PRN MIGRAINES 01/25/21 Unknown History adalimumab 40 mg/0.4 mL 40 mg subcut .Q2WEEK 02/21/22 Unknown History subcutaneous pen kit (Humira(CF) Pen) albuterol sulfate 90 mcg/actuation 1 inh inhalation PRN PRN ASTHMA 05/17/22 Unknown History aerosol inhaler pantoprazole 40 mg tablet,delayed 40 mg PO DAILY #30 tabs 06/06/22 04/08/24 Rx release plecanatide 3 mg tablet (Trulance) 3 mg PO DAILY #30 TABLETS 02/11/24 Unknown Rx atogepant 60 mg tablet (Qulipta) 60 mg PO DAILY 03/08/24 Unknown History cocoa butter-shark liver oil 1 supp SC DAILY PRN hemorrhoids 03/08/24 Unknown History rectal suppository (Hemorrhoidal H rectal suppository) ubrogepant 100 mg tablet (Ubrelvy) 100 mg PO PRN 03/08/24 Unknown History budesonide 3 mg 6 mg (2 x 3 mg) PO DAILY #60 caps 03/22/24 Unknown Rx capsule,delayed,extended release phenazopyridine 200 mg tablet 200 mg PO TID PRN PRN Bladder 03/25/24 Unknown Rx (Pyridium) Spasms 7 days #30 tabs tramadol 50 mg tablet 50 mg PO Q8H PRN pain 3 days #10 03/25/24 Unknown Rx tabs Allergy/AdvReac Type Severity Reaction Status Date / Time aspirin Allergy Intermediate Other Verified 04/02/24 11:13 ibuprofen Allergy Anaphylaxis Verified 04/02/24 11:13 naproxen (From Aleve) Allergy Anaphylaxis Verified 04/02/24 11:13 oxycodone HCl (From Percocet) Allergy Rash Verified 04/02/24 11:13 meperidine HCl (From Demerol) AdvReac Low blood Verified 04/02/24 11:13 pressure Family History Other Alcohol abuse Arthritis Asthma BLOOD TRANSFUSIONS Breast cancer Cancer Colon cancer Diabetes Diverticulitis High cholesterol Hypertension Osteoporosis Thyroid disorder Surgical History History of cystoscopy Hx of colonoscopy History of esophagogastroduodenoscopy (EGD) H/O abdominal hysterectomy Social History Smoking Status: Never smoker alcohol intake: current alcohol intake frequency: 0-2 drinks per day substance use type: does not use what type of physical activity do you participate in: none
[2024-04-08] MEDS: Cefazolin 2 GM in 0.9% Normal Saline (100mL Bag) 100 ML IV (13:02)
--- NOTE | 2024-04-08 13:50 | EX.PCM.DISCH ---
Discharge Instructions Diet Discharge Diet: No restrictions Activity Discharge Activity: Return to Normal Activity Dressing / Incision Call your doctor if you observe: Fever of 101 or Higher, Inability to urinate and Inability to have a bowel movement Follow Up Care Please Follow Up With: Dasha Oliver MD Test Results: Test results from this visit will be discussed in further detail at your follow-up appointment, if applicable. Pending Tests Upon Discharge: The office will call to make arrangements to be seen in 3 to 4 weeks. Discharge Plan Admission Attending Provider: Dasha Oliver Primary Care Provider: Latesha Coffey Instructions Print Language: Lithuanian Discharge Orders/Prescriptions Prescriptions: New cephalexin 500 mg capsule 500 mg PO Q12 3 Days Qty: 6 0RF phenazopyridine [Pyridium] 200 mg tablet 200 mg PO TID PRN PRN (Reason: Bladder Spasms) 7 Days Qty: 30 0RF Continued cyclobenzaprine 10 mg tablet 10 mg PO PRN PRN (Reason: Muscle Pain) loratadine 10 mg tablet 10 mg PO DAILY Patient Comments: TAKE 1 TABLET BY MOUTH ONCE DAILY sumatriptan succinate 50 mg tablet 1 tablet PO PRN PRN (Reason: MIGRAINES) Humira(CF) Pen 40 mg/0.4 mL pen injector kit 40 mg subcut .Q2WEEK Rx Instructions: inject one - 40 mg/0.4 mL pen every 2 weeks subcut pantoprazole 40 mg tablet,delayed release (DR/EC) 40 mg PO DAILY Qty: 30 5RF fpcybaxycl-kzxoqlqhmlitv-jmuk 1 TABLET tablet 1 tab PO Q4H PRN PRN (Reason: Headache) albuterol sulfate 90 mcg/actuation HFA aerosol inhaler 1 inh INHALATION PRN PRN (Reason: ASTHMA) Patient Comments: INHALE 2 PUFFS BY MOUTH EVERY 6 HOURS NEEDED FOR SHORTNESS OF BREATH Ubrelvy 100 mg tablet 100 mg PO PRN Qulipta 60 mg tablet 60 mg PO DAILY Hemorrhoidal H Suppository 1 supp MI DAILY PRN (Reason: hemorrhoids) phenazopyridine [Pyridium] 200 mg tablet 200 mg PO TID PRN PRN (Reason: Bladder Spasms) 7 Days Qty: 30 1RF tramadol 50 mg tablet 50 mg PO Q8H PRN (Reason: pain) 3 Days Qty: 10 0RF Trulance 3 mg tablet 3 mg PO DAILY Qty: 30 2RF budesonide 3 mg capsule,delayed,extend.release 6 mg PO DAILY Qty: 60 2RF Referrals / Follow Up: Latesha Coffey MD [Primary Care Provider] - Disposition Disposition (needs filled in before D/C Order can be placed): Home, Self Care
--- NOTE | 2024-04-08 13:53 | PCM.OPRPT ---
Report of Operation Date of Procedure: 04/08/24 Pre-Operative Diagnosis: Gross hematuria Post-Operative Diagnosis: Same, left kidney stone Surgery/Procedure Performed:: Cystoscopy, bilateral ureteral stent removal, bilateral ureteroscopy, left renal stone basket extraction Surgeon: Dasha Oliver Type of Anesthesia: General Specimen's removed: Left renal stone Description of Procedure: The patient is a 53-year-old female with gross hematuria who underwent cystoscopy with ureteral stent insertion secondary to ureteral stature. She now presents for definitive evaluation with ureteroscopy. Informed consent was obtained.The patient was taken to the operating room and placed on the operating room table. Anesthesia monitored the head, neck, airway, IV access and vital signs throughout the case.Once anesthesia was appropriately administered, she was placed into dorsolithotomy position and was prepped and draped in usual sterile fashion.The cystoscope was inserted through the urethra under direct visualization and the ureteral stents were easily observed. The right stent was grasped with grasping forceps and pulled through the urethral meatus. It was then backloaded with a 0.035 Glidewire which advanced all the way to the renal pelvis as seen on fluoroscopy, and the ureteral stent was removed.The flexible ureteroscope was placed over the Glidewire and advanced easily all the way into the renal pelvis where the Glidewire was then removed. Every calyx was directly visualized finding no evidence of mass, erythema, stone or other abnormality. The entire length of the ureter was directly visualized finding no abnormality.This process was then repeated on the patient's left side where a 1 to 2 mm calcification was identified in the midpole. A basket was used to remove the stone.On further evaluation, it was determined that she had multiple complex calyces on this side.The remainder of the visualization of the kidney revealed no mass, erythema or other stones. The entire length of the ureter was directly visualized finding no evidence of mass, erythema or abnormality. There was no evidence of injury or significant edema identified. The patient preferred not to have her stents reinserted. At this time the bladder was emptied and all of the scopes were removed. She was awakened and taken to the recovery room in good condition. There were no complications during this procedure. Grafts/Implants Used: None Complications None Admit VTE Documentation VTE Present on Admission: Yes VTE Mechan Device Prophylaxis: SCD's Reason prophylaxis not ordered:: Treatment Not Indicated
--- NOTE | 2024-04-08 13:55 | PCM.POST.ANE ---
Anesthesia: Postop Eval I Current Vital Signs Temperature: 97.7 F Pulse Rate: 80 Blood Pressure: 127/74 Respiratory Rate: 16 Pulse Ox: 99 Oxygen Delivery Method: Room Air Assessment Airway patent: Yes Spontaneous unlabored respirations: Yes Mental status: Awake and Calm nausea: No Vomiting: No Anesthesia Complication: No Fluid Hydration Crystalloid volume administer (ml): 500 Total IV fluid infused: 500 Progress Note Anesthesia document: Postop Eval 1 completed: Yes
--- NOTE | 2024-04-08 14:05 | POSTOPAN2_ITS ---
Anesthesia Postop Eval I Sum Postop Eval Completion status Anesthesia document: Postop Eval 1 completed: Yes Anesthesia Postop Eval I Summary Anesthesia Postop Eval I Summary: Anesthesia Postop Eval I: Assessment Summary Airway patent Yes 04/08/24 13:56 [email or web address] [email or web address] Spontaneous unlabored Yes 04/08/24 13:56 ANTISQUEAK [email or web address].[email or web address] respirations Mental status Awake,Calm 04/08/24 13:56 ANTISQUEAK [email or web address].[email or web address] nausea No 04/08/24 13:56 ANTISQUEAK [email or web address].[email or web address] Vomiting No 04/08/24 13:56 ANTISQUEAK [email or web address] Anesthesia Postop Eval I: Fluid Summary Crystalloid volume administer 500 04/08/24 13:56 ANTISQUEAK [email or web address].MDOT (ml) Colloids volume administered ( ml) Blood Product volume administered (ml) Total IV fluid infused 500 04/08/24 13:56 ANTISQUEAK [email or web address].[email or web address] Anesthesia Postop Eval I: Summary Notes Anesthesia Complication No 04/08/24 13:56 ANTISQUEAK [email or web address] Anesthesia Complication Comment: Post-operative progress note Anesthesia: Postop Eval II Evaluation Mental status: Awake Pain Level: 0 nausea: No Vomiting: No Complications Anesthesia Complication: No
--- NOTE | 2024-04-08 14:05 | PCM.POSTANE2 ---
Anesthesia Postop Eval I Sum Postop Eval Completion status Anesthesia document: Postop Eval 1 completed: Yes Anesthesia Postop Eval I Summary Anesthesia Postop Eval I Summary: Anesthesia Postop Eval I: Assessment Summary Airway patent Yes 04/08/24 13:56 TELEGRAPH [email or web address] Spontaneous unlabored Yes 04/08/24 13:56 TELEGRAPH [email or web address] respirations Mental status Awake,Calm 04/08/24 13:56 TELEGRAPH [email or web address].MDOT nausea No 04/08/24 13:56 TELEGRAPH [email or web address] Vomiting No 04/08/24 13:56 TELEGRAPH [email or web address] Anesthesia Postop Eval I: Fluid Summary Crystalloid volume administer 500 04/08/24 13:56 TELEGRAPH [email or web address].MDOT (ml) Colloids volume administered ( ml) Blood Product volume administered (ml) Total IV fluid infused 500 04/08/24 13:56 TELEGRAPH [email or web address] Anesthesia Postop Eval I: Summary Notes Anesthesia Complication No 04/08/24 13:56 TELEGRAPH [email or web address] Anesthesia Complication Comment: Post-operative progress note Anesthesia: Postop Eval II Evaluation Mental status: Awake Pain Level: 0 nausea: No Vomiting: No Complications Anesthesia Complication: No
== END 2024-04-08 15:24 | disposition home or self-care (01) ==
LOC: SDC 11:13 → AC 11:24
PROVIDERS: PCP Internal Medicine; Referring Provider Urology; Visit Provider Urology
PROC: 0TJ98ZZ Inspection of Ureter, Via Natural or Artificial Opening Endoscopic (ICD-10-PCS; CPT 52352; principal; 2024-04-08 12:35)
DX: R31.0 Gross hematuria (principal); M06.9 Rheumatoid arthritis, unspecified; J45.909 Unspecified asthma, uncomplicated; N39.3 Stress incontinence (female) (male); N94.10 Unspecified dyspareunia; N95.2 Postmenopausal atrophic vaginitis; K21.9 Gastro-esophageal reflux disease without esophagitis; Z79.899 Other long term (current) drug therapy; Z79.51 Long term (current) use of inhaled steroids
CPT/HCPCS: 52352; 52310; 00910; 76000; J2405

== ENCOUNTER 2024-09-29 12:23 | Day surgery (SDC) | payer MEDICAID, SELFPAY ==
--- NOTE | 2024-09-28 11:33 | PAT.ANE_ITS ---
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 When Was Last Pacemaker Check QUESTION #4 FULL TEXT: You/Your Family Experience fever (hyperthermia) with Anesthesia Last Oral Intake Last Oral intake: Last Oral Intake NPO since Meds taken in AM with sips of water? 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 Female Yes 09/27/24 13:33 HX of Motion Sickness No 09/27/24 13:33 HX of N/V After Surgery No 09/27/24 13:33 Non-Smoker Yes 09/27/24 13:33 Duration of Surgery greater No 09/27/24 13:33 than 60 minutes Number of Risk Factors 2 09/27/24 13:33 PONV Score Moderate Risk 09/27/24 13:33 Height & Weight Height & Weight: Anesthesia: Height & Weight Height 5 ft 2 in 04/08/24 11:44 Respiratory Assessment Respiratory Assessment - middle school sports coach: Respiratory Tract Infection Hx - middle school sports coach Hx Respiratory Tract Infection No 09/27/24 13:33 STOP Sleep Apnea STOP Sleep Apnea - middle school sports coach: STOP Sleep Apnea - middle school sports coach Hx Hypertension No 09/27/24 13:33 Hx Sleep Apnea Yes 09/27/24 13:33 CPAP Yes 09/27/24 13:33 BIPAP No 09/27/24 13:33 Do you snore loudly (louder than talking or can be heard Do you often feel tired/ fatigued/ sleepy during daytime? Has anyone observed you stop breathing during sleep? STOP Results Positive 09/27/24 13:33 QUESTION #5 FULL TEXT : Do you snore loudly (louder than talking or can be heard through closed doors)? 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 Specify any problems Hx of Preganancy in last 3 No 09/27/24 13:33 Months Nurse Filling Out Transfusion [email or web address] 09/27/24 13:33 & Questions: Date: 09/27/24 09/27/24 13:33 Time: 13:36 09/27/24 13:33 Patient unable to answer at this time (ie. 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: /Reproductive Hx- middle school sports coach Hx Now Gestational Age (in weeks): EDC: Hx Hx Para Hx Section SAB No 09/27/24 13:33 PFSH Medical History (Updated 09/27/24 @ 13:49 by Shmuel Painter) History of echocardiogram Cardiology follow-up encounter Kidney stone Wears glasses Rheumatoid arthritis Anemia Back pain Migraine headache Syncope Gastric reflux Non-smoker CPAP (continuous positive airway pressure) dependence Shortness of breath on exertion History of edema GERD (gastroesophageal reflux disease) Irritable bowel syndrome with constipation Abdominal pain Nodular goiter MIDDLE FINGER MULTIPLE D&C cyst of wrist hystorectomy ovaries sinus glands Nose obstruction Breast cyst Cyst of ovary laposcopy Multiple Csection Fibromyalgia High triglycerides High cholesterol Asthma Arthritis Seasonal allergies Home Medications ?Medication ?Instructions ?Recorded ?Last Taken ?Type gnxclgjnii-wlhmedqakzxzl-dlnnbdzu 1 tab PO Q4H PRN PRN Headache 11/15/14 Unknown History 50 mg-325 mg-40 mg tablet cyclobenzaprine 10 mg tablet 10 mg PO PRN PRN Muscle Pain 01/25/21 Unknown History loratadine 10 mg tablet 10 mg PO DAILY 01/25/21 Unknown History sumatriptan succinate 50 mg tablet 1 tablet PO PRN PRN MIGRAINES 01/25/21 Unknown History albuterol sulfate 90 mcg/actuation 1 inh inhalation PRN PRN ASTHMA 05/17/22 Unknown History aerosol inhaler atogepant 60 mg tablet (Qulipta) 60 mg PO DAILY 03/08/24 Unknown History cocoa butter-shark liver oil 1 supp NC DAILY PRN hemorrhoids 03/08/24 Unknown History rectal suppository (Hemorrhoidal H rectal suppository) ubrogepant 100 mg tablet (Ubrelvy) 100 mg PO PRN 03/08/24 Unknown History tramadol 50 mg tablet 50 mg PO Q8H PRN pain 3 days #10 03/25/24 Unknown Rx tabs pantoprazole 40 mg tablet,delayed 40 mg PO BID #60 tabs 08/17/24 Unknown Rx release sucralfate 1 gram tablet 1 g PO QAC #90 tabs 08/17/24 Unknown Rx budesonide 3 mg 6 mg (2 x 3 mg) PO DAILY #60 caps 09/27/24 Unknown Rx capsule,delayed,extended release plecanatide 3 mg tablet (Trulance) 3 mg PO DAILY #30 TABLETS 09/27/24 Unknown Rx Allergy/AdvReac Type Severity Reaction Status Date / Time aspirin Allergy Intermediate Other Verified 09/27/24 13:30 ibuprofen Allergy Anaphylaxis Verified 09/27/24 13:30 naproxen (From Aleve) Allergy Anaphylaxis Verified 09/27/24 13:30 oxycodone HCl (From Percocet) Allergy Rash Verified 09/27/24 13:30 meperidine HCl (From Demerol) AdvReac Low blood Verified 09/27/24 13:30 pressure Family History Other Alcohol abuse Arthritis Asthma BLOOD TRANSFUSIONS Breast cancer Cancer Colon cancer Diabetes Diverticulitis High cholesterol Hypertension Osteoporosis Thyroid disorder Surgical History History of cystoscopy Hx of colonoscopy History of esophagogastroduodenoscopy (EGD) H/O abdominal hysterectomy Social History Smoking Status: Never smoker alcohol intake: current alcohol intake frequency: 0-2 drinks per day substance use type: does not use what type of physical activity do you participate in: none Audit: Pertinent Findings Pertinent Findings Echo (EF%) pertinent findings: August 10, 2024. Ejection fraction is 55 to 6 0%. Normal valves. Right ventricular systolic pressure is 20 mmHg. Consult pertinent findings: August 18, 2024. Prodafikas 1 chest pain plan for mobile outpatient telemetry versus event monitor. 2. Palpitations plan for event monitor. 3. Hypertension hyperaldosteronism is in the differential and renin and aldosterone levels will be checked Recommendation Anesthesia Recommendation Anesthesia recommentdation: F/U recommended Follow up Details Cadiac/Pulmonary Imaging Recommendation: Yes Cadiac/Pulmonary Imaging Rec Details: Patient was seen by cardiology at [facility] on August 18, 2024. It was recommended that he get a Holter or telemetry testing. Also he needed to get renin and aldosterone labs. Were these done. And what are these results.
--- NOTE | 2024-09-28 15:48 | PAT.ANESEVAL ---
PAT status Pat Assessment PAT Assessment: PAT Anesthesia Results to Eval 09/28/24 14:48 Pre-Assessment Diagnosis/Proposed Procedure Planned Operative Procedure(s): EGD Anesthesia History Anesthesia History - special events coordinator: Anesthesia History - special events coordinator Hx Hospitalization No 09/27/24 13:33 Any Problems With Anesthesia No 09/27/24 13:33 Cholinesterase deficiency No 09/27/24 13:33 You/Your Family Experience No 09/27/24 13:33 fever (hyperthermia) with Relationship Recent Exposure to Contagious No 04/08/24 11:44 Disease Does patient have nerve No 09/27/24 13:33 stimulator Patient instructed to have device shut off --Does patient have Pacemaker or ICD? When Was Last Pacemaker Check QUESTION #4 FULL TEXT: You/Your Family Experience fever (hyperthermia) with Anesthesia Last Oral Intake Last Oral intake: Last Oral Intake NPO since Meds taken in AM with sips of water? Meds patient instructed to take am of surgery PONV PONV - special events coordinator: PONV - special events coordinator Female Yes 09/27/24 13:33 HX of Motion Sickness No 09/27/24 13:33 HX of N/V After Surgery No 09/27/24 13:33 Non-Smoker Yes 09/27/24 13:33 Duration of Surgery greater No 09/27/24 13:33 than 60 minutes Number of Risk Factors 2 09/27/24 13:33 PONV Score Moderate Risk 09/27/24 13:33 Height & Weight Height & Weight: Anesthesia: Height & Weight Height 5 ft 2 in 04/08/24 11:44 Respiratory Assessment Respiratory Assessment - special events coordinator: Respiratory Tract Infection Hx - special events coordinator Hx Respiratory Tract Infection No 09/27/24 13:33 STOP Sleep Apnea STOP Sleep Apnea - special events coordinator: STOP Sleep Apnea - special events coordinator Hx Hypertension No 09/27/24 13:33 Hx Sleep Apnea Yes 09/27/24 13:33 CPAP Yes 09/27/24 13:33 BIPAP No 09/27/24 13:33 Do you snore loudly (louder than talking or can be heard Do you often feel tired/ fatigued/ sleepy during daytime? Has anyone observed you stop breathing during sleep? STOP Results Positive 09/27/24 13:33 QUESTION #5 FULL TEXT : Do you snore loudly (louder than talking or can be heard through closed doors)? Tobacco Use History Tobacco Use History - special events coordinator: Tobacco Use History - special events coordinator Tobacco Use Smoking Status Never smoker 09/27/24 13:33 Hx Tobacco Use No 09/27/24 13:33 Years Smoking Packs Smoked per Day Smoking Cessation Date was within the last 15 years Hx Smoking Cessation Date Hx Smoking Cessation Counseling Hematologic Medial History Hematologic Hx - special events coordinator: Hematologic Medical Hx - rate marker Hx of Blood Transfusion No 09/27/24 13:33 Hx of Transfusion in last 3 No 09/27/24 13:33 Months Date of Last Transfusion (if within last 3 months) Ever experience any problems No 09/27/24 13:33 with transfusion(s)? Specify any problems Hx of Preganancy in last 3 No 09/27/24 13:33 Months Nurse Filling Out Transfusion [email or web address] 09/27/24 13:33 & Questions: Date: 09/27/24 09/27/24 13:33 Time: 13:36 09/27/24 13:33 Patient unable to answer at this time (ie. confused, unrespo /Reproduction History /Reproductive History - special events coordinator: /Reproductive Hx- special events coordinator Hx Now Gestational Age (in weeks): EDC: Hx Hx Para Hx Section SAB No 09/27/24 13:33 PFSH Medical History (Updated 09/27/24 @ 13:49 by Shmuel Painter) History of echocardiogram Cardiology follow-up encounter Kidney stone Wears glasses Rheumatoid arthritis Anemia Back pain Migraine headache Syncope Gastric reflux Non-smoker CPAP (continuous positive airway pressure) dependence Shortness of breath on exertion History of edema GERD (gastroesophageal reflux disease) Irritable bowel syndrome with constipation Abdominal pain Nodular goiter MIDDLE FINGER MULTIPLE D&C cyst of wrist hystorectomy ovaries sinus glands Nose obstruction Breast cyst Cyst of ovary laposcopy Multiple Csection Fibromyalgia High triglycerides High cholesterol Asthma Arthritis Seasonal allergies Home Medications ?Medication ?Instructions ?Recorded ?Last Taken ?Type mdxncgwlrz-ihyaxcnemsuun-athwshsl 1 tab PO Q4H PRN PRN Headache 11/15/14 Unknown History 50 mg-325 mg-40 mg tablet cyclobenzaprine 10 mg tablet 10 mg PO PRN PRN Muscle Pain 01/25/21 Unknown History loratadine 10 mg tablet 10 mg PO DAILY 01/25/21 Unknown History sumatriptan succinate 50 mg tablet 1 tablet PO PRN PRN MIGRAINES 01/25/21 Unknown History albuterol sulfate 90 mcg/actuation 1 inh inhalation PRN PRN ASTHMA 05/17/22 Unknown History aerosol inhaler atogepant 60 mg tablet (Qulipta) 60 mg PO DAILY 03/08/24 Unknown History cocoa butter-shark liver oil 1 supp CA DAILY PRN hemorrhoids 03/08/24 Unknown History rectal suppository (Hemorrhoidal H rectal suppository) ubrogepant 100 mg tablet (Ubrelvy) 100 mg PO PRN 03/08/24 Unknown History tramadol 50 mg tablet 50 mg PO Q8H PRN pain 3 days #10 03/25/24 Unknown Rx tabs pantoprazole 40 mg tablet,delayed 40 mg PO BID #60 tabs 08/17/24 Unknown Rx release sucralfate 1 gram tablet 1 g PO QAC #90 tabs 08/17/24 Unknown Rx budesonide 3 mg 6 mg (2 x 3 mg) PO DAILY #60 caps 09/27/24 Unknown Rx capsule,delayed,extended release plecanatide 3 mg tablet (Trulance) 3 mg PO DAILY #30 TABLETS 09/27/24 Unknown Rx Allergy/AdvReac Type Severity Reaction Status Date / Time aspirin Allergy Intermediate Other Verified 09/27/24 13:30 ibuprofen Allergy Anaphylaxis Verified 09/27/24 13:30 naproxen (From Aleve) Allergy Anaphylaxis Verified 09/27/24 13:30 oxycodone HCl (From Percocet) Allergy Rash Verified 09/27/24 13:30 meperidine HCl (From Demerol) AdvReac Low blood Verified 09/27/24 13:30 pressure Family History Other Alcohol abuse Arthritis Asthma BLOOD TRANSFUSIONS Breast cancer Cancer Colon cancer Diabetes Diverticulitis High cholesterol Hypertension Osteoporosis Thyroid disorder Surgical History History of cystoscopy Hx of colonoscopy History of esophagogastroduodenoscopy (EGD) H/O abdominal hysterectomy Social History Smoking Status: Never smoker alcohol intake: current alcohol intake frequency: 0-2 drinks per day substance use type: does not use what type of physical activity do you participate in: none Audit: Pertinent Findings HISTORY of Pertinent Findings History of Pertinent Findings: Echo Pertinent Findings Echo (EF%) pertinent findings August 10, 2024. Ejection 09/28/24 11:46 fraction is 55 to 60%. Normal valves. Right ventricular systolic pressure is 20 mmHg. Consult Pertinent Findings Consult pertinent findings August 18, 2024. 09/28/24 11:46 Prodafikas 1 chest pain plan for mobile outpatient telemetry versus event monitor. 2. Palpitations plan for event monitor. 3. Hypertension hyperaldosteronism is in the differential and renin and aldosterone levels will be checked Pertinent Findings Additional pertinent findings: September 23, 2024. Mobile cardiac outpatient telemetry. Monitoring was done for 27-1/2 days. PAC burden was less than 1%. PVC burden was less than 1%. Labs from August 18, 2024. Aldosterone is 10.5 normal. renin activity is 0.803 is also normal. Ratio is 13.1. This is also normal. Recommendation Anesthesia Recommendation Anesthesia recommendation: OPTIMIZED for anesthesia
[2024-09-29] VITALS (7 sets, daily range): BP systolic 116–125; BP diastolic 77–80; PULSE 82–100; RESP 12–16; TEMP 36.6–37.1; O2SAT 97–99; BMI 24.2
--- NOTE | 2024-09-29 12:36 | PCM.PRE.AN2 ---
ASA Classification* ASA Classification ASA Classification: 2 Assessment & Plan Anesthesia* Anesthesia Assessment Anesthesia Assessment: Discussed sedation and/or anesthesia options, risks, benefits, and alternatives with patient/parents/legal guardian/POA. Questions invited. The patient/parents/legal guardian/POA seems to understand and agrees to proceed with anesthesia plan. Reviewed the physical assessment, medical history, allergy history and patient home medications list prior to surgery/procedure/anesthetic and documented any changes. Performed airway and anesthesia risk assessments. Anesthesia Type Anesthesia Type: MAC Anesthesia Focused Assessment* Airway Assessment Mouth opens: >3 cm Mallampati Score: II Focused Labs Anesthesia Preop lab: CBC WBC 6.0 K/mm3 (4.4-11.0) 11/15/14 08:26 RBC 4.11 M/mm3 (4.2-5.4) L 11/15/14 08:26 Hgb 12.6 g/dl (12.0-15.0) 11/15/14 08:26 Hct 36.5 % (37-47) L 11/15/14 08:26 Plt Count 252 K/mm3 (150-450) 11/15/14 08:26 CHEMISTRY TSH 0.55 uIU/mL (0.358-3.74) 01/25/21 11:21 COAG Pre-Assessment Diagnosis/Proposed Procedure Planned Operative Procedure(s): EGD Anesthesia History Anesthesia History - administrator: Anesthesia History - administrator Hx Hospitalization No 09/27/24 13:33 Any Problems With Anesthesia No 09/27/24 13:33 Cholinesterase deficiency No 09/27/24 13:33 You/Your Family Experience No 09/27/24 13:33 fever (hyperthermia) with Relationship Recent Exposure to Contagious No 04/08/24 11:44 Disease Does patient have nerve No 09/27/24 13:33 stimulator Patient instructed to have device shut off --Does patient have Pacemaker or ICD? When Was Last Pacemaker Check QUESTION #4 FULL TEXT: You/Your Family Experience fever (hyperthermia) with Anesthesia Last Oral Intake Last Oral intake: Last Oral Intake NPO since Meds taken in AM with sips of water? Meds patient instructed to take am of surgery PONV PONV - administrator: PONV - administrator Female Yes 09/27/24 13:33 HX of Motion Sickness No 09/27/24 13:33 HX of N/V After Surgery No 09/27/24 13:33 Non-Smoker Yes 09/27/24 13:33 Duration of Surgery greater No 09/27/24 13:33 than 60 minutes Number of Risk Factors 2 09/27/24 13:33 PONV Score Moderate Risk 09/27/24 13:33 Height & Weight Height & Weight: Anesthesia: Height & Weight Height 5 ft 2 in 04/08/24 11:44 Respiratory Assessment Respiratory Assessment - administrator: Respiratory Tract Infection Hx - administrator Hx Respiratory Tract Infection No 09/27/24 13:33 STOP Sleep Apnea STOP Sleep Apnea - administrator: STOP Sleep Apnea - administrator Hx Hypertension No 09/27/24 13:33 Hx Sleep Apnea Yes 09/27/24 13:33 CPAP Yes 09/27/24 13:33 BIPAP No 09/27/24 13:33 Do you snore loudly (louder than talking or can be heard Do you often feel tired/ fatigued/ sleepy during daytime? Has anyone observed you stop breathing during sleep? STOP Results Positive 09/27/24 13:33 QUESTION #5 FULL TEXT : Do you snore loudly (louder than talking or can be heard through closed doors)? Tobacco Use History Tobacco Use History - administrator: Tobacco Use History - administrator Tobacco Use Smoking Status Never smoker 09/27/24 13:33 Hx Tobacco Use No 09/27/24 13:33 Years Smoking Packs Smoked per Day Smoking Cessation Date was within the last 15 years Hx Smoking Cessation Date Hx Smoking Cessation Counseling Hematologic Medial History Hematologic Hx - administrator: Hematologic Medical Hx - retail sales consultant Hx of Blood Transfusion No 09/27/24 13:33 Hx of Transfusion in last 3 No 09/27/24 13:33 Months Date of Last Transfusion (if within last 3 months) Ever experience any problems No 09/27/24 13:33 with transfusion(s)? Specify any problems Hx of Preganancy in last 3 No 09/27/24 13:33 Months Nurse Filling Out Transfusion [email or web address] 09/27/24 13:33 & Questions: Date: 09/27/24 09/27/24 13:33 Time: 13:36 09/27/24 13:33 Patient unable to answer at this time (ie. confused, unrespo /Reproduction History /Reproductive History - administrator: /Reproductive Hx- administrator Hx Now Gestational Age (in weeks): EDC: Hx Hx Para Hx Section SAB No 09/27/24 13:33 PFSH Medical History History of echocardiogram Cardiology follow-up encounter Kidney stone Wears glasses Rheumatoid arthritis Anemia Back pain Migraine headache Syncope Gastric reflux Non-smoker CPAP (continuous positive airway pressure) dependence Shortness of breath on exertion History of edema GERD (gastroesophageal reflux disease) Irritable bowel syndrome with constipation Abdominal pain Nodular goiter MIDDLE FINGER MULTIPLE D&C cyst of wrist hystorectomy ovaries sinus glands Nose obstruction Breast cyst Cyst of ovary laposcopy Multiple Csection Fibromyalgia High triglycerides High cholesterol Asthma Arthritis Seasonal allergies Home Medications ?Medication ?Instructions ?Recorded ?Last Taken ?Type qmupjgvixw-jedqkepsumetl-vxjkjvpx 1 tab PO Q4H PRN PRN Headache 11/15/14 Unknown History 50 mg-325 mg-40 mg tablet cyclobenzaprine 10 mg tablet 10 mg PO PRN PRN Muscle Pain 01/25/21 Unknown History loratadine 10 mg tablet 10 mg PO DAILY 01/25/21 Unknown History sumatriptan succinate 50 mg tablet 1 tablet PO PRN PRN MIGRAINES 01/25/21 Unknown History albuterol sulfate 90 mcg/actuation 1 inh inhalation PRN PRN ASTHMA 05/17/22 Unknown History aerosol inhaler atogepant 60 mg tablet (Qulipta) 60 mg PO DAILY 03/08/24 Unknown History cocoa butter-shark liver oil [address] DAILY PRN hemorrhoids 03/08/24 Unknown History rectal suppository (Hemorrhoidal H rectal suppository) ubrogepant 100 mg tablet (Ubrelvy) 100 mg PO PRN 03/08/24 Unknown History tramadol 50 mg tablet 50 mg PO Q8H PRN pain 3 days #10 03/25/24 Unknown Rx tabs pantoprazole 40 mg tablet,delayed 40 mg PO BID #60 tabs 08/17/24 Unknown Rx release sucralfate 1 gram tablet 1 g PO QAC #90 tabs 08/17/24 Unknown Rx budesonide 3 mg 6 mg (2 x 3 mg) PO DAILY #60 caps 09/27/24 Unknown Rx capsule,delayed,extended release plecanatide 3 mg tablet (Trulance) 3 mg PO DAILY #30 TABLETS 09/27/24 Unknown Rx Allergy/AdvReac Type Severity Reaction Status Date / Time aspirin Allergy Intermediate Other Verified 09/27/24 13:30 ibuprofen Allergy Anaphylaxis Verified 09/27/24 13:30 naproxen (From Aleve) Allergy Anaphylaxis Verified 09/27/24 13:30 oxycodone HCl (From Percocet) Allergy Rash Verified 09/27/24 13:30 meperidine HCl (From Demerol) AdvReac Low blood Verified 09/27/24 13:30 pressure Family History Other Alcohol abuse Arthritis Asthma BLOOD TRANSFUSIONS Breast cancer Cancer Colon cancer Diabetes Diverticulitis High cholesterol Hypertension Osteoporosis Thyroid disorder Surgical History History of cystoscopy Hx of colonoscopy History of esophagogastroduodenoscopy (EGD) H/O abdominal hysterectomy Social History Smoking Status: Never smoker alcohol intake: current alcohol intake frequency: 0-2 drinks per day substance use type: does not use what type of physical activity do you participate in: none Review of Systems (Anesthesia) ROS Narrative System reviewed and no additional complaints, except as documented.
--- NOTE | 2024-09-29 13:30 | EGD_PTH ---
PATIENT: GONZALO MESA LOC: EN U#:[id number] AGE/SX: 54/F ROOM: RE09/29/[address]: Dr. Kolby Wilson DO : 1970 BED: DIS: 09/29/2024 SPEC #: [id number] RECD: 09/30/24 07:40 STATUS: STORM RESincere #: [id number] ANDREA: 09/29/24 13:[address]: Kolby Wilson DEPT: SURGICAL PATHOLOGY RECD BY: Johnna Chamorro ENTERED: 09/30/24 12:03 SP TYPE: EGD BIOPSY OTHR DR: Dr. Latesha Coffey MD Tissues: A - Duodenum, NOS B - Esophagus, NOS C - Gastric mucous membrane Procedures: Special Stain Group I Surgery Specimen Level IV Alcian Blue/PAS (control) HEADER OPERATION: EGD PRE-OP DIAGNOSIS: GERD, eosinophilic esophagitis, irritable bowel syndrome with constipation TISSUE SUBMITTED: A- Duodenum biopsy, B- Distal esophagus biopsy, C- Gastric polyp biopsy MICROSCOPIC DIAGNOSIS A. Duodenum, biopsy: Fragments of duodenal mucosa with mild Ar gland hyperplasia. B. Distal esophagus, biopsy: Fragments of gastroesophageal mucosa with chronic inflammation. Intestinal metaplasia (goblet cell metaplasia) not identified. See comment. C. Gastric polyp, biopsy: Fragments of fundic gland polyp. Mild chronic inflammation. See comment. 10/01/2024 COMMENT B. Alcian blue/PAS stain with matched control is used in the evaluation of the specimen. C. The results of immunohistochemistry for Helicobacter pylori will be reported separately ([id number]). MICROSCOPIC DESCRIPTION Slides are reviewed. GROSS DESCRIPTION A. Received in fixative is one container labeled with the patient's name and designated Duodenum biopsy. The specimen consists of multiple irregular fragments of light randolph soft tissue that in aggregate measure 1.0 x 0.2 x 0.1 cm. The specimen is totally submitted in one cassette. B. Received in fixative is one container labeled with the patient's name and designated Distal esophagus biopsy. The specimen consists of two irregular fragments of light randolph soft tissue that in aggregate measure 0.6 x 0.3 x 0.1 cm. The specimen is totally submitted in one cassette. C. Received in fixative is one container labeled with the patient's name and designated Gastric polyp biopsy. The specimen consists of two irregular fragments of light randolph soft tissue that in aggregate measure 0.6 x 0.3 x 0.1 cm. The specimen is totally submitted in one cassette. SJ.mr 09/30/2024 TC:3 CPT:15247a6,53963
--- NOTE | 2024-09-29 13:30 | IMM_PTH ---
PATIENT: GONZALO MESA LOC: EN U#:[id number] AGE/SX: 54/F ROOM: RE09/29/[address]: Dr. Kolby Wilson DO : 1970 BED: DIS: 09/29/2024 SPEC #: [id number] RECD: 09/30/24 10:57 STATUS: STORM REQ #: [id number] ANDREA: 09/29/24 13:[address]: Kolby Wilson DEPT: IMMUNOHISTOCHEMISTRY RECD BY: Mihai Devlin ENTERED: 09/30/24 10:57 SP TYPE: IMMUNO OTHR DR: Dr. Latesha Coffey MD Tissues: C - Gastric mucous membrane Procedures: H Pylori (initial) PHYSICIAN & INSTITUTION [place] [id number] SPECIMEN INFORMATION: Tissue Source: C. Gastric polyp biopsy Clinical Info: GERD, eosinophilic esophagitis, irritable bowel syndrome with constipation Specimen Number: [id number] CPT code: 86467 METHODOLOGY: Deparaffinized sections of prefer/formalin-fixed tissue or PAP/DQ stained slides are incubated with monoclonal/polyclonal antibodies/oligonucleotide probes. Localization is made via biotin free immunoperoxidase method. Appropriate controls are performed and reacted as expected. Results on target cell population are indicated in the following table: RESULTS: ANTIBODY / CLONE RESULT Block C H Pylori (polyclonal) negative These tests were developed and their performance characteristics determined by [facility]. They may not have been cleared or approved by the U.S. Food and Drug Administration. The FDA has determined that such clearance or approval is not necessary. The above immunohistochemical/dualISH markers are ordered and reviewed by the Pathologist. INTERPRETATION: C. Gastric polyp, biopsy: Negative for Helicobacter pylori organisms. 10/01/2024
--- NOTE | 2024-09-29 14:03 | HP.PCM_ITS ---
History and Physical Date of Admission: 09/29/24 GONZALO LOVETT, is a 53 F who presents to the office today for FU with complaints of mild mid-epigastric pain and nausea in the mornings. She states that she hasn't noticed if eating food makes the epigastric worse or better. She reports taking the pantoprazole daily as prescribed. She reports being selective with her foods as she is not wholly observing the No White Diet we placed her on over the summer. She is using agave sugar, pink salt, brown rice, and only whole grain breads. She states that she has lost over 20 pounds since doing the No White Diet and feels a lot better. She reports occasional foods getting trapped in her esophagus like before. Last EGD was in 2021 where she had esophageal stenosis and was dilated. Last colonoscopy was 03.09.24 with diverticulosis in recto-sigmoid and descending colon. She denies difficulty chewing, heartburn, reflux, abdominal bloating, hematochezia and melena. She reports taking her Trulance, with have hard stools alternating with diarrhea, but that's her normal. Continues taking budesonide 6mg daily. ROS Const Constitutional: Positive for headache(s); No chills, fatigue, fever(s) or weight change Eyes Eyes: No change in vision ENT ENT: Positive for headache(s); No abnormal hearing or difficulty swallowing Resp Respiratory: No cough Cardio Cardiology: Positive for leg pain with exertion; No chest pain at rest or chest pain with exertion Gastro GI: Positive for bloating, diarrhea, heartburn, excessive flatus and nausea/dyspepsia; No abdominal pain, belching, change in bowel habits, change in stool character, coffee ground emesis, constipation, cramping, difficulty swallowing, feeling full early, incontinent of stools, Vomiting blood/hematemesis, Blood in stool, loose stools, Black,tarry stools, pain with swallowing, vomiting or other Genitourinary-Female: No difficulty urinating Musc Musculoskeletal: Positive for joint pain, back pain, numbness, tingling, Arthritis, restless legs and leg pain with exertion Skin Skin: No yellowing of the eye or itchy eyes Neuro Neurology: Positive for headache(s), numbness, tingling and restless legs; No abnormal hearing Psych Psychiatric: No anxiety and No depression Endo Endocrine: No cold intolerance, fatigue, heat intolerance or weight change Aller/Imm Allergy/Immunologic: No food intolerance or itchy eyes Bienvenido/Lymp Hematologic/Lymphatic: No easy bleeding or easy bruising Exam Const General: cooperative, healthy appearing, comfortable and no acute distress Nutritional Appearance: average body habitus Orientation: alert [facility] Head: normal to inspection Ears: hearing grossly normal bilaterally Nose: external nose normal Face and sinus: normal facial exam and face symmetric Eyes General: appearance normal, both eyes and all related structures Sclera: sclerae normal Neck Neck: normal visual inspection and full ROM Neck mass: No Chest Chest palpation & inspection: normal inspection of the chest Resp Effort & Inspection: normal respiratory effort, able to speak in complete sentences and symmetric chest movement GI Inspection: normal to inspection Auscultation: normal bowel sounds Palpation: soft Skin General: no rashes or lesions noted Neuro General: patient alert, patient awake, patient oriented x3 and moves all extremities Cognition: normal cognition Speech: speech normal Gait: normal gait Extrem General: normal to inspection and full ROM Psych Appearance: well kempt Mental Status: mental status grossly normal Mood: congruent mood Affect: normal affect Speech and Movement: speech and movement normal Attitude: cooperative Thought Process: normal Assessment and Plan Assessment and Plan (1) GERD (gastroesophageal reflux disease): Status: Chronic Qualifiers: Esophagitis presence: without esophagitis Qualified Code(s): K21.9 - Gastro-esophageal reflux disease without esophagitis (2) Eosinophilic esophagitis: Status: Chronic (3) Irritable bowel syndrome with constipation: Status: Chronic Medications: New sucralfate 1 g PO QAC 90 tabs 1RF Changed From pantoprazole 40 mg PO DAILY 30 tabs 5RF To pantoprazole 40 mg PO BID 60 tabs 5RF Plan GONZALO LOVETT, is a 53 F who presents to the office today for FU with complaints of mild mid-epigastric pain and nausea in the mornings. Differential diagnoses include: PUD, H. pylori infection, worsening GERD/esophagitis, gastritis. Discussed the plans with her and she is agreeable. Continue other medicines as prescribed, will call for refills. * EGD for evaluation of esophageal stenosis and gastritis * sucralfate 1gm PO QAC * increase pantoprazole to 40mg PO BID * office follow-up 6months I have examined the patient and the H&P has been reviewed. There are no clinical changes since date of exam.
--- NOTE | 2024-09-29 15:33 | PCM.POST.ANE ---
Anesthesia: Postop Eval I Current Vital Signs Temperature: 97.8 F Pulse Rate: 88 Blood Pressure: 119/78 Respiratory Rate: 12 Pulse Ox: 98 Oxygen Delivery Method: Room Air Assessment Airway patent: Yes Spontaneous unlabored respirations: Yes Mental status: Asleep nausea: No Vomiting: No Anesthesia Complication: No Fluid Hydration Crystalloid volume administer (ml): 30 Total IV fluid infused: 30 Progress Note Anesthesia document: Postop Eval 1 completed: Yes
--- NOTE | 2024-09-29 15:39 | OP.EGD_ITS ---
Patient Name: Eloisa Ham Procedure Date: 09/29/2024 3:08 PM Date of : 1970 Age: 54 Procedure: Upper GI endoscopy Indications: Epigastric abdominal pain, Dyspepsia, Indigestion, Dysphagia Providers: Kolby Wilson DO Referring MD: Latesha Coffey Medicines: Monitored Anesthesia Care Patient Profile: This is a 54 year old female. Refer to note in patient chart for documentation of history and physical. Patient has symptoms of chronic abdominal distention, acute epigastric abdominal pain, acute dysphagia, acute dyspepsia and chronic nausea. Complications: No immediate complications. Procedure: Pre-Anesthesia Assessment: - Prior to the procedure, a History and Physical was performed, and patient medications and allergies were reviewed. The patient is competent. The risks and benefits of the procedure and the sedation options and risks were discussed with the patient. All questions were answered and informed consent was obtained. Patient identification and proposed procedure were verified by the physician in the pre-procedure area. Mental Status Examination: alert and oriented. Airway Examination: normal oropharyngeal airway and neck mobility. Respiratory Examination: clear to auscultation. CV Examination: normal. Prophylactic Antibiotics: The patient does not require prophylactic antibiotics. Prior Anticoagulants: The patient has taken no anticoagulant or antiplatelet agents. ASA Grade Assessment: II - A patient with mild systemic disease. After reviewing the risks and benefits, the patient was deemed in satisfactory condition to undergo the procedure. The anesthesia plan was to use monitored anesthesia care (MAC). Immediately prior to administration of medications, the patient was re-assessed for adequacy to receive sedatives. The heart rate, respiratory rate, oxygen saturations, blood pressure, adequacy of pulmonary ventilation, and response to care were monitored throughout the procedure. The physical status of the patient was re-assessed after the procedure. After obtaining informed consent, the endoscope was passed under direct vision. Throughout the procedure, the patient's blood pressure, pulse, and oxygen saturations were monitored continuously. The gastroscope was introduced through the mouth, and advanced to the second part of duodenum. The upper GI endoscopy was accomplished without difficulty. The patient tolerated the procedure well. Scope In: 3:23:28 PM Scope Out: 3:26:52 PM Total Procedure Duration Time 0 hours 3 minutes 24 seconds Findings: No endoscopic abnormality was evident in the esophagus to explain the patient's complaint of dysphagia. A single 5 mm sessile polyp with no bleeding and no stigmata of recent bleeding was found in the gastric body. The polyp was removed with a cold biopsy forceps. Resection and retrieval were complete. Verification of patient identification for the specimen was done. Estimated blood loss was minimal. A benign-appearing, intrinsic moderate stenosis was found at the pylorus. This was traversed. Patchy mildly erythematous mucosa without active bleeding and with no stigmata of bleeding was found in the duodenal bulb. Biopsies were taken with a cold forceps for histology. Verification of patient identification for the specimen was done. Estimated blood loss was minimal. Impression: - No endoscopic esophageal abnormality to explain patient's dysphagia. - A single gastric polyp. Resected and retrieved. - Gastric stenosis was found at the pylorus. - Erythematous duodenopathy. Biopsied. Recommendation: - Discharge patient to home. - Resume previous diet. - Continue present medications. - Await pathology results. - HIDA scan and ultrasound of the gallbladder and liver Procedure Code(s): --- Professional --- 59272, Esophagogastroduodenoscopy, flexible, transoral; with biopsy, single or multiple CPT copyright 2021 [employer] [place] [employer]. All rights reserved. The codes documented in this report are preliminary and upon video production specialist review may be revised to meet current compliance requirements. Kolby Wilson DO 09/29/2024 3:38:55 PM This report has been signed electronically. Number of Addenda: 0 Note Initiated On: 09/29/2024 3:08 PM
--- NOTE | 2024-09-29 15:39 | OP.CCLET_ITS ---
09/29/2024 Latesha Coffey Re : Upper GI endoscopy procedure for Eloisa Ham Dear Alexx This procedure was performed on Sunday, September 29, 2024. My impressions and recommendations are as follows: Impressions : - No endoscopic esophageal abnormality to explain patient's dysphagia. - A single gastric polyp. Resected and retrieved. - Gastric stenosis was found at the pylorus. - Erythematous duodenopathy. Biopsied. Recommendations : - Discharge patient to home. - Resume previous diet. - Continue present medications. - Await pathology results. - HIDA scan and ultrasound of the gallbladder and liver My findings are described in the full procedure note, which is enclosed. If I can be of further assistance, please feel free to contact me at . Sincerely, Kolby Friend, 09/29/2024 3:38:55 PM This report has been signed electronically.
--- NOTE | 2024-09-29 20:59 | PCM.POSTANE2 ---
Anesthesia Postop Eval I Sum Postop Eval Completion status Anesthesia document: Postop Eval 1 completed: Yes Anesthesia Postop Eval I Summary Anesthesia Postop Eval I Summary: Anesthesia Postop Eval I: Assessment Summary Airway patent Yes 09/29/24 15:33 [email or web address] Spontaneous unlabored Yes 09/29/24 15:33 [email or web address] respirations Mental status Asleep 09/29/24 15:33 [email or web address] nausea No 09/29/24 15:33 [email or web address] Vomiting No 09/29/24 15:33 [email or web address] Anesthesia Postop Eval I: Fluid Summary Crystalloid volume administer 30 09/29/24 15:33 [email or web address] (ml) Colloids volume administered ( ml) Blood Product volume administered (ml) Total IV fluid infused 30 09/29/24 15:33 [email or web address] Anesthesia Postop Eval I: Summary Notes Anesthesia Complication No 09/29/24 15:33 [email or web address] Anesthesia Complication Comment: Post-operative progress note Anesthesia: Postop Eval II Evaluation Mental status: Awake and Calm Pain Level: 0 nausea: No Vomiting: No Complications Anesthesia Complication: No
== END 2024-09-29 17:02 | disposition home or self-care (01) ==
LOC: EN 12:23 → AC 12:37
PROVIDERS: PCP Internal Medicine; Referring Provider Internal Medicine; Visit Provider Internal Medicine Gastroenterology
PROC: 0DJ08ZZ Inspection of Upper Intestinal Tract, Via Natural or Artificial Opening Endoscopic (ICD-10-PCS; CPT 43235; principal; 2024-09-29 13:25)
DX: K21.00 Gastro-esophageal reflux disease with esophagitis, without bleeding (principal); K29.50 Unspecified chronic gastritis without bleeding; K31.7 Polyp of stomach and duodenum; Z79.899 Other long term (current) drug therapy; R51.9 Headache, unspecified; K58.1 Irritable bowel syndrome with constipation; K31.1 Adult hypertrophic pyloric stenosis; J45.909 Unspecified asthma, uncomplicated; E78.00 Pure hypercholesterolemia, unspecified
CPT/HCPCS: 43239; 88305; 88312; 88342; J2405

== ENCOUNTER → 2024-11-11 | Outpatient (CLI) | payer MEDICAID, SELFPAY ==
[2024-11-11 10:45] LABS: Absolute Lymphocyte Count 1.46 X10^3/uL (0.83-4.51); Absolute Neutrophil Count 4.1 X10^3/uL (2.0-7.7); Basophil# 0.05 X10^3/uL; Basophil% 0.8 % (0-1); Eosinophil# 0.07 X10^3/uL; Eosinophils% 1.1 % (0-5); Hematocrit 38.6 % (37-47); Hemoglobin 12.8 g/dL (12.0-15.0); Lymphocyte # 1.46 X10^3/ul (0.83-4.51); Lymphocyte % 23.5 % (19-41); Mean Corp Hgb Conc 33.2 g/dL (32-36); Mean Corpuscular Hgb 29.4 pg (27.0-32.0); Mean Corpuscular Volume 88.5 fL (81-99); Mean Platelet Vol. 9.6 fl (6.2-12.0); NRBC Flagged by Analyzer 0 % (0-5); Neutrophil # 4.11 X10^3/uL (2.7-7.7); Neutrophil % 66.1 % (47-70); Platelet Count 223 K/mm3 (150-450); RBC Distribution Width CV 11.9 % (11.6-14.6); RBC Distribution Width SD 38.7 fl (35.1-43.9); Red Blood Count 4.36 M/mm3 (4.2-5.4); White Blood Count 6.2 K/mm3 (4.4-11.0)
[2024-11-11 12:14] LABS: ALB/GLOB Ratio 0.9 RATIO (0.9-2.4); AST(SGOT) 12 U/L (15-37); Alanine Aminotransfer ALT/SGPT 23 U/L (13-56); Albumin, Serum 3.5 g/dL (3.2-5.0); Alkaline Phosphatase 122 U/L (45-117); Anion Gap 7 (5-15); BUN 15 mg/dL (7-18); BUN/Creat Ratio 20.1 RATIO (10-20); Chloride 111 mmol/L (98-107); Creatinine, Serum 0.75 mg/dL (0.55-1.02); EST Glomerular Filtration Rate 86 mL/min (>60); Est Glom Filt Rate - Afr Amer 104 mL/min (>60); Globulin 3.7 g/dL (2.2-4.2); Glucose 102 mg/dL (74-106); Potassium 3.4 mmol/L (3.5-5.1); Protein, Total 7.2 g/dL (6.4-8.2); Sodium Level 142 mmol/L (136-145)
== END | disposition home or self-care (01) ==
LOC: LAB 10:11
PROVIDERS: PCP Internal Medicine; Referring Provider Student in an Organized Health Care Education/Training Program; Visit Provider Student in an Organized Health Care Education/Training Program
DX: R10.9 Unspecified abdominal pain (principal)
CPT/HCPCS: 36415; 80053; 85025

== ENCOUNTER → 2024-11-15 | Outpatient (CLI) | payer MEDICAID, SELFPAY ==
--- NOTE | 2024-11-15 07:35 | US_ITS ---
EXAM: US ABDOMEN LIMITED, RIGHT UPPER QUADRANT CLINICAL INDICATION: RUQ pain -- gallbladder and liver TECHNIQUE: Real-time ultrasound of the right upper quadrant with image documentation. COMPARISON: No relevant prior studies available. FINDINGS: LIVER: Liver measures 14.2 cm. There is normal echotexture. No intrahepatic biliary ductal dilation. GALLBLADDER: Gallbladder wall measures 3 mm. No shadowing gallstone. No pericholecystic fluid. Negative sonographic Craig''s sign. COMMON BILE DUCT: The common bile duct measures 3 mm. The proximal common bile duct is within normal limits for the patient''s age. PANCREAS: Unremarkable as visualized. No focal abnormality is demonstrated in the pancreas. No pancreatic ductal dilatation. RIGHT KIDNEY: Unremarkable. There is no hydronephrosis. No shadowing calculus. No focal lesion or perinephric collection is demonstrated. Right kidney measures 10.1 x 3.8 x 5.3 cm. US/Abdomen Limited IMPRESSION: No acute findings in the right upper quadrant. Electronically Signed: Gerard Martinez MD at 0:05 EST ,
== END | disposition home or self-care (01) ==
LOC: US 07:32
PROVIDERS: PCP Internal Medicine; Referring Provider Student in an Organized Health Care Education/Training Program; Visit Provider Student in an Organized Health Care Education/Training Program
DX: R10.11 Right upper quadrant pain (principal)
CPT/HCPCS: 76705

== ENCOUNTER → 2024-12-13 | Outpatient (CLI) | payer MEDICAID, SELFPAY ==
--- NOTE | 2024-12-13 09:04 | NM_ITS ---
PROCEDURE: HEPATOBILLIARY IMG W/PHARM INT REASON FOR EXAM: Right upper quadrant pain with nausea. TECHNIQUE: Intravenous Choletec with planar imaging of the abdomen. 1.2 mcg Kinevac intravenously approximately 60 minutes after the radiopharmaceutical with additional anterior imaging and a region of interest drawn around the gallbladder to calculate a time-activity curve. RADIOPHARMACEUTICAL: 5.4 mCi of mebrofenin COMPARISON: None. FINDINGS: There is good uptake of the radiopharmaceutical by the liver. Normal gallbladder visualization with the gallbladder identified by 30 minutes. Gallbladder Ejection Fraction: 79 % (Normal is >35%) NM/Hepatobilliary Img w/Pharm Int IMPRESSION: NORMAL HIDA SCAN AND GALLBLADDER EJECTION FRACTION. Reading Location: [id number]
== END | disposition home or self-care (01) ==
LOC: NM 08:59
PROVIDERS: PCP Internal Medicine; Referring Provider Student in an Organized Health Care Education/Training Program; Visit Provider Student in an Organized Health Care Education/Training Program
DX: R10.11 Right upper quadrant pain (principal)
CPT/HCPCS: 96365; 78227; A9537; J2805

== ENCOUNTER → 2025-01-07 | Outpatient (CLI) | payer MEDICAID, SELFPAY ==
--- NOTE | 2025-01-07 08:45 | FLU_PTH ---
PATIENT: GONZALO MESA LOC: [facility] U#:[id number] AGE/SX: 54/F ROOM: RE01/07/[address]: Dr. Davidson Segal MD : 1970 BED: DIS: 01/07/2025 SPEC #: [id number] RECD: 01/07/25 15:51 STATUS: STORM MCKEON #: [id number] ANDREA: 01/07/25 08:[address]: Davidson Segal DEPT: CYTOLOGY RECD BY: Nicole Weir ENTERED: 01/10/25 08:50 SP TYPE: Fluid OTHR DR: Dr. Latesha Coffey MD Tissues: A - Thyroid gland, NOS Procedures: Special Stain Group II Cytospin Fluid Cytology Other HEADER OPERATION: Fine needle aspiration of thyroid nodule PRE-OP DIAGNOSIS: Thyroid nodule TISSUE SUBMITTED: A- Left inferior thyroid nodule fluid DIAGNOSIS CYTOLOGY Left inferior thyroid nodule, 1 cm, ultrasound-guided fine-needle aspiration and cytology:Benign thyroid nodule (see comment) COMMENT The slides show thyroid follicular cells without nuclear abnormalities. Histiocytes are present in small numbers. CYTOLOGY STUDY Slides are reviewed. CYTOLOGY GROSS A. Received is 30 ml of light-red fluid and 4 slides (2 paps and 4DQ) labeled with the patient's name and and designated per the requisition as Left inferior thyroid nodule. Submitted for cytology. Mr 01/10/2025 CPT: 43640, TC:4
== END | disposition home or self-care (01) ==
LOC: LABSPEC 16:03
PROVIDERS: PCP Internal Medicine; Referring Provider Surgery; Visit Provider Surgery
DX: E04.1 Nontoxic single thyroid nodule (principal)
CPT/HCPCS: 88108; 88161; 88313

== ENCOUNTER → 2025-08-30 | Outpatient (CLI) | payer MEDICAID, SELFPAY ==
--- NOTE | 2025-08-30 12:11 | CT_ITS ---
PROCEDURE: ABDOMEN/PELVIS WITH CONTRAST 08/30/2025 REASON FOR EXAM: DIVERITICULITIS WITH BLEEDING TECHNIQUE: Procedure Code: [id number] Modality: CT Procedure: ABDOMEN/PELVIS WITH CONTRAST Coronal and Sagittal reconstruction series were provided. CONTRAST: Isovue-300 VOLUME: 100 mL One or more dose reduction techniques were used (e.g., Automated exposure control, adjustment of the mA and/or kV according to patient size, use of iterative reconstruction technique. RADIATION DOSE SUMMARY: CTDlvol: 17 mGy DLP: 561.32 mGycm COMPARISON: Prior study dated February 26, 2024. FINDINGS: Lung bases: The lung bases are clear. Liver: Normal size. No mass. Gallbladder: Gallbladder is unremarkable. Spleen: Normal size. Pancreas: Normal size without evidence of mass surrounding inflammation or ductal dilation. Adrenals: Unremarkable Kidneys: Normal renal sizes. No hydronephrosis. Bladder: The urinary bladder is empty. Reproductive Organs: Status post hysterectomy. Bowel: Sigmoid diverticulosis with increased markings in the surrounding peritoneal fat suggestive of mild degree of sigmoid diverticulitis. Possible tiny air collection adjacent to the sigmoid colon. No abscess or free fluid is seen. Appendix: The appendix is not identified. There is no inflammatory process identified in the right lower quadrant to suggest appendicitis. Lymph nodes: Unremarkable. Vasculature: The abdominal aorta and IVC are normal. Peritoneum / Retroperitoneum: Unremarkable Bones: Unremarkable CT/Abdomen/Pelvis WITH Contrast IMPRESSION: Findings in keeping with non complicated sigmoid diverticulitis. Question tiny air collection adjacent to the sigmoid colon. Reading Location: [id number]
[2025-08-30 12:39] LABS: Hematocrit 38.8 % (37-47); Hemoglobin 13.1 g/dL (12.0-15.0); Immature Granulocytes Count 0.040 X10^3/uL (0.0-0.0); Mean Corp Hgb Conc 33.8 g/dL (32-36); Mean Corpuscular Volume 89.0 fL (81-99); Mean Platelet Vol. 9.0 fl (6.2-12.0); NRBC Flagged by Analyzer 0 % (0-5); Platelet Count 284 K/mm3 (150-450); RBC Distribution Width CV 11.9 % (11.6-14.6); RBC Distribution Width SD 38.8 fl (35.1-43.9); Red Blood Count 4.36 M/mm3 (4.2-5.4); White Blood Count 6.7 K/mm3 (4.4-11.0)
[2025-08-30 13:18] LABS: AST(SGOT) 16 U/L (<=31); Alanine Aminotransfer ALT/SGPT 15 U/L (<=34); Albumin, Serum 4.1 g/dL (3.5-5.0); Alkaline Phosphatase 90 U/L (35-104); Anion Gap 10 (5-15); BUN 14 mg/dL (4-19); BUN/Creat Ratio 19.1 RATIO (10-20); CRP 48.10 mg/L (0.0-3.0); Calcium,Total 8.8 mg/dL (7.6-11.0); Carbon Dioxide 24.7 mmol/L (21.0-32.0); Chloride 106 mmol/L (98-108); Globulin 3.0 g/dL (2.2-4.2); Glucose 118 mg/dL (70-99); Potassium 3.9 mmol/L (3.3-5.1)
== END | disposition home or self-care (01) ==
PROVIDERS: PCP Internal Medicine Infectious Disease; Referring Provider Internal Medicine Gastroenterology; Visit Provider Internal Medicine Gastroenterology
DX: R10.9 Unspecified abdominal pain (principal); K21.9 Gastro-esophageal reflux disease without esophagitis; Z87.19 Personal history of other diseases of the digestive system
CPT/HCPCS: 36415; 74177; 80053; 85025; 85652; 86140; Q9967; A4216